=== PATIENT | female | born 1940 | race Caucasian/White ===

== ENCOUNTER 2020-04-13 15:28 | Outpatient (CLI) | payer MEDICARE ==
--- NOTE | 2020-04-13 16:13 | ULT ---
EXAM: Bilateral lower extremity venous Doppler HISTORY: Bilateral calf pain since December, right greater than left. FINDINGS: Grayscale, color-flow, Doppler evaluation, spectral analysis of the bilateral lower extremity venous structures is performed with 2-D imaging. The bilateral common femoral, superficial femoral, popliteal, posterior tibial, proximal greater saphenous and profunda femoral veins are imaged. Real-time imaging demonstrates sluggish venous flow within the bilateral lower extremity venous struc tures, but there is evidence of normal luminal compressibility and augmentation within the visualized deep venous structures bilateral lower extremities. Sluggish flow is present in the bilate ral lower extremity venous structures. Pulsatile flow is also demonstrated venous structures, but this is likely a function of venous hemodynamics. IMPRESSION: No evidence of a deep vein thrombosis in the visualized deep venous structures bilateral lower extrem ities. There is evidence of sluggish flow involving the bilateral lower extremity venous structures.
== END 2020-04-13 15:29 | disposition home or self-care (01) ==
LOC: SCSULT 15:28
PROVIDERS: ATTEND Family Medicine
DX: M79.604 Pain in right leg (principal); I87.8 Other specified disorders of veins
CPT/HCPCS: 93970

== ENCOUNTER 2020-05-20 23:26 | Inpatient (IN) | payer MEDICARE, OTHER ==
[2020-05-20] MEDS ORDERED: EPINEPHrine 1 MG/ML AMP ONE ×3 (23:31→23:32)
[2020-05-20] MEDS ORDERED: Midazolam HCl 2 mg/2 ml Vial ONE (23:52)
[2020-05-20 23:56] LABS: Actual Bicarbonate (HCO3a) 17.2 mEq/L (22-28); Analyzer IN Cardio ER; Base Excess (BEa) -8.9 mEq/L (-2.0 to +3.0); CO2 Tension 37.6 mmHg (35.0-45.0); Calcium, Ionized (arterial) 0.92 mmol/L (1.12-1.30); Carboxyhemoglobin (COHb) 0.3 gm% (0.0-3.0); Hemoglobin (Hb) 13.1 g/dL (12.0-16.0); O2 Tension (PaO2), arterial 91.4 mmHg (> 60.0); pH, Arterial 7.28 (7.35-7.45)
[2020-05-21 00:17] LABS: Puncture Site RRA
[2020-05-21 00:27] LABS: Bilirubin Negative (Negative); Blood, Urine 3+ (Negative); Clarity Clear (Clear); Glucose, Urine (Dipstick) 300 mg/dL (Negative); Ketone, Urine 20 mg/dL (Negative); Leukocyte Negative Leu/uL (Negative); Nitrite Negative (Negative); Protein, Urine (Dipstick) 100 mg/dL (Neg-Trace); RBC/HPF 0-3 HPF (0-3); Specific Gravity, Urine 1.015 (1.002-1.036); Squamous Epithelial None Seen HPF (0-3); Urobilinogen Normal mg/dL (Less than 2); WBC/HPF 0-3 HPF (0-3); pH, Urine 5.5 (5.0-9.0)
[2020-05-21 00:34] LABS: Bacteria/HPF 1+ HPF (None Seen)
[2020-05-21] MEDS ORDERED: Acetaminophen 325 MG TAB PO PRN (00:40)
[2020-05-21] MEDS ORDERED: Acetaminophen 650 MG Suppository PR PRN (00:40)
[2020-05-21] MEDS ORDERED: Ondansetron ODT 4 MG TAB PO PRN (00:40)
[2020-05-21] MEDS ORDERED: Guaifenesin DM 100-10/5 ML UDCUP PO PRN (00:40)
[2020-05-21] MEDS ORDERED: Ondansetron PF 4 MG/2 ML Vial IVP PRN (00:40)
[2020-05-21] MEDS ORDERED: Norepinephrine 8 MG/0.9% NS 250 ML IVPB SCH (00:45)
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
[2020-05-21 01:29] LABS: Troponin I 7.039 ng/mL (< 0.028)
[2020-05-21] MEDS: Sodium Chloride 0.9% 1,000 ML IV SCH ×2 (01:30→18:56)
[2020-05-21] MEDS ORDERED: Cefepime 2 GM in Sodium Chloride 0.9% 100 ML IVPB SCH (02:00)
[2020-05-21] MEDS ORDERED: Vancomycin HCl 1.75 GM in Sodium Chloride 0.9% 500 ML IVPB SCH (02:30)
[2020-05-21] MEDS ORDERED: fentaNYL Citrate/PF 2,000 MCG in Sodium Chloride 0.9% 60 ML IV SCH (02:36)
[2020-05-21] MEDS ORDERED: DISCONTINUE PREVIOUS NARCOTIC PAIN MEDICATIONS AND BENZODIAZEPINES FS SCH (02:36)
[2020-05-21] MEDS ORDERED: Fentanyl BOLUS 250 ML IVPB PRN (02:36)
[2020-05-21] MEDS ORDERED: Propofol BOLUS 1,000 MG/100 ML VIAL IV PRN (02:36)
[2020-05-21] MEDS ORDERED: Morphine 2 MG/ML VIAL SLOW IVP PRN (02:36)
[2020-05-21] MEDS ORDERED: Propofol 1,000 MG/100 ML VIAL IV PRN (02:36)
[2020-05-21] MEDS ORDERED: EPINEPHrine 4 MG in Dextrose 5% in Water 250 ML IV PRN (02:36)
[2020-05-21] MEDS ORDERED: Lorazepam 2 MG/ML VIAL SLOW IVP PRN (02:36)
[2020-05-21 04:16] LABS: Lactic Acid 11.7 mmol/L (0.5-2.2)
[2020-05-21 04:24] LABS: ALT (SGPT) 147 U/L (8-55); AST (SGOT) 175 U/L (5-34); Alkaline Phosphatase 43 U/L (40-110); Anion Gap 23 mmol/L (10-20); BUN (Urea Nitrogen) 28 mg/dL (9.8-20.1); Bilirubin, Total 0.7 mg/dL (0.2-1.2); Calc. Creatinine Clearance 26 mL/min (70-130); Calcium 6.8 mg/dL (7.8-10.44); Carbon Dioxide 16 mmol/L (23-31); Chloride 108 mmol/L (98-107); Estimated GFR-MDRD 27; Globulin 2.1 g/dL (2.4-3.5); Glucose 335 mg/dL (83-110); Potassium 3.2 mmol/L (3.5-5.1); Protein, Total 5.1 g/dL (6.0-8.3); Sodium 144 mmol/L (136-145)
[2020-05-21 04:51] LABS: Band 8 % (5-11); Hemoglobin 12.5 g/dL (12.0-16.0); Lymphocytes 24 % (21-51); MDiff Complete? YES; Mean Corpuscular HGB CONC 32.5 g/dL (32.0-36.0); Mean Corpuscular Hemoglobin 30.1 pg (27.0-31.0); Mean Corpuscular Volume 92.7 fL (78.0-98.0); Mean Platelet Volume 8.2 fL (7.4-10.4); Monocytes 7 % (0-10); Neutrophil 61 % (42-75); Platelet Count 257 thou/uL (130-400); RBC Distribution Width 13.8 % (11.5-14.5); Red Blood Cell (RBC) Count 4.16 mill/uL (4.20-5.40); White Blood Cell (WBC) Count 11.6 thou/uL (4.8-10.8)
--- NOTE | 2020-05-21 07:47 | RAD ---
XR Chest 1 View Portable History: Intubated. Sepsis Comparison: Radiograph prior day Findings: Endotracheal tube tip is above the clavicles. Enteric tube side port just above the GE junc tion. Defibrillator pad projects of the right hemithorax. Heart size is enlarged. Small effusions. Asymmetric right perihilar airspace opacities. Impression: 1. Subtle right perihilar airspace opacity concerning for infection. 2. Small pleural effusions. 3. Enteric tube side port just above the GE junction. Recommend advancing. 4. Endotracheal tube tip just below the level of clavicles.
[2020-05-21 08:32] LABS: Actual Bicarbonate (HCO3a) 15.1 mEq/L (22-28); Analyzer IN Cardio ER; Base Excess (BEa) -6.3 mEq/L (-2.0 to +3.0); Calcium, Ionized (arterial) 0.93 mmol/L (1.12-1.30); Carboxyhemoglobin (COHb) 0.6 gm% (0.0-3.0); Hemoglobin (Hb) 13.1 g/dL (12.0-16.0); O2 Tension (PaO2), arterial 90.3 mmHg (> 60.0); Potassium - ABG Lab 3.27 mmol/L (3.70-5.30); pH, Arterial 7.48 (7.35-7.45)
[2020-05-21] MEDS ORDERED: Electrolyte Replacement Protoc 1 EACH EACH FS ONE (08:56)
[2020-05-21 08:57] LABS: CO2 Tension 20.8 mmHg (35.0-45.0); Puncture Site RB
[2020-05-21] MEDS ORDERED: Dextrose 5% in Water 1,000 ML IV PRN (09:06)
[2020-05-21] MEDS ORDERED: Dextrose 50% Abboject 50 ML SYRINGE SLOW IVP PRN (09:06)
[2020-05-21] MEDS ORDERED: Potassium Chloride 40 MEQ in Sodium Chloride 0.9% 250 ML 250 ML IVPB SCH (09:15)
[2020-05-21] MEDS: Enoxaparin Sodium 30 MG/0.3 ML SYRINGE SC SCH (09:36)
[2020-05-21] MEDS: Famotidine/PF 20 mg/2ml Vial SLOW IVP SCH (09:37)
--- NOTE | 2020-05-21 09:59 | CON ---
DATE OF CONSULTATION: 05/21/2020 45 minutes critical care time. REASON FOR CONSULTATION: Respiratory failure after a cardiopulmonary arrest. HISTORY OF PRESENT ILLNESS: Ms. Fernández is an 80-year-old female, who was transferred from [facility], where she had presented yesterday evening with lethargy. She was apparently having trouble moving her extremities. They decided to intubate her. Shortly after intubation, she became bradycardic, went into PEA, was given IV epinephrine, had return of spontaneous circulation, was placed on epinephrine drip. She was given antibiotics for presumed pneumonia and sent over here. Of note, she has a severely elevated troponin. PAST MEDICAL HISTORY: Hypertension, depression, gastritis, arthritis, chronic back pain, herpes simplex, hyperlipidemia. PAST SURGICAL HISTORY: Lumbar fusion, total knee replacement. FAMILY MEDICAL HISTORY: Unremarkable. SOCIAL HISTORY: Does not smoke. Does not consume alcohol. REVIEW OF SYSTEMS: Cannot be obtained as she is currently on mechanical ventilation. ALLERGIES: BUPROPION, CLONAZEPAM, CODEINE, DOXYCYCLINE, FENTANYL, PROPOXYPHENE, VENLAFAXINE. PHYSICAL EXAMINATION: VITAL SIGNS: Heart rate 76, blood pressure 127/80, O2 saturation 100%, respiratory rate 24. She is currently intubated and on mechanical ventilation. Temperature is 98.3. HEENT: Pupils reactive. Oropharynx, intubated. NECK: No adenopathy or JVD. CHEST: Fairly clear anteriorly. CARDIAC: S1 and S2, regular. ABDOMEN: Soft, nontender to palpation. EXTREMITIES: No clubbing, cyanosis, or edema. The patient will move to all commands. LABORATORY DATA: Sodium 144, potassium 3.2, chloride 108, CO2 of 16, BUN 28, creatinine 1.8, glucose 335. Lactate 11.7, troponin 11.8. AST 175, ALT 147, procalcitonin 1.15. PH 7.48, pCO2 of 20, pO2 of 90, that is on SIMV rate 24, tidal volume 450, PEEP 5, pressure support 10, FiO2 of 50%. White blood cell count 11.6, hematocrit 38.6, and platelet count 257. Her x-ray shows cardiomegaly. There is really no acute infiltrate noted. CT of the head was reported as negative. ASSESSMENT: 1. Status post acute cardiopulmonary arrest from PEA that occurred after intubation. 2. Myocardial infarction. 3. Possible pneumonia/sepsis. The patient presenting with intermediate procalcitonin level with lactic acidosis. PLAN: 1. The patient will be kept on mechanical ventilation, but I will go ahead and adjust her settings. 2. Replace potassium. 3. Continue empiric antibiotics. 4. Cardiology consult. 5. Wean vasopressors as tolerated. 6. Pepcid for GI prophylaxis. 7. Enoxaparin for DVT prophylaxis. Job ID: [id number]
[2020-05-21] MEDS ORDERED: Aspirin 325 MG TAB PO SCH (10:00)
[2020-05-21 10:01] LABS: Troponin I 17.015 ng/mL (< 0.028)
[2020-05-21] MEDS: Insulin Regular 300 UNITS/3 ML VIAL SC PRN (11:58)
[2020-05-21 12:35] LABS: SARS-CoV-2 MS2 Positive; SARS-CoV-2 N Gene Negative; SARS-CoV-2 S Gene Negative; SARS-CoV-2 by NAA Not Detected (NotDetected); SARS-CoV-2 orf1ab Negative
--- NOTE | 2020-05-21 12:37 | CON ---
DATE OF CONSULTATION: 05/21/2020 REASON FOR CONSULTATION: [id number] myocardial infarction, hypotension, renal insufficiency, status post pulseless electrical activity. PRIMARY BEHAVIOR THERAPIST: Dr. Moshe Guardado. HISTORY OF PRESENT ILLNESS: Ms. Fernández is an 80-year-old woman. She was transferred to this institution from [facility] last night. The patient was taken to [facility] after her was unable to awaken her. She had taken a muscle relaxer 24 hours prior to that, slept all day and all night. When tried to awaken her, he was unable to do so. On arrival to the ER, she was lethargic, moving all extremities spontaneously, not following commands. She had low oxygen saturations. Elected to intubate her. CT scan was negative. Lactic acid was elevated. White count was normal. Troponin 1.4. CT scan of her chest showed diffuse right-sided infiltrates, possible pneumonia. Shortly after intubation, she became bradycardic, then pulseless electrical activity. She was successfully resuscitated. Also started on epinephrine drip, given vancomycin and cefepime for possible pneumonia. The patient apparently is Dr. Moshe Guardado's patient. REVIEW OF SYSTEMS: Not obtainable. She is currently intubated, on the ventilator. FAMILY HISTORY: Unable to obtain. SOCIAL HISTORY: Unable to obtain. PHYSICAL EXAMINATION: GENERAL: This is an elderly woman, somewhat frail appearing. Blood pressure now 124/74, pulse 72. She is still on epinephrine. HEENT: Eyes, nonicteric. Mouth, mucous membranes are moist. LUNGS: Clear anteriorly and laterally. CARDIAC: Normal S1, normal S2. I do not hear a murmur, rub, or gallop. ABDOMEN: Soft and nontender. EXTREMITIES: Warm and dry. No clubbing or cyanosis. No edema. She has palpable dorsalis pedis pulses bilaterally. There is a femoral vein catheter on the right side, there is a mild hematoma. DIAGNOSTIC STUDIES: EKG last night did reveal what looked like an old anterior KS. There were times when there was a bifascicular block present, with right bundle-branch block and left axis deviation. Troponin level 7.039, then 11.8. Lactic acid 11.7. Most recent potassium is 3.2. ASSESSMENT: 1. Status post pulseless electrical activity. 2. Ipq-[id number] myocardial infarction. 3. Transient bifascicular block. 4. Possible sepsis. 5. Hypokalemia. 6. Unknown previous cardiac status. PLAN: 1. We will request records from Dr. Guardado's office. 2. Give aspirin. 3. Review echocardiogram. 4. Ultimately, likely will need cardiac catheterization, we will need to discuss that in detail with the patient's . Her prognosis is guarded. 5. Also replete potassium. CODE STATUS: Full. Job ID: [id number]
[2020-05-21 13:20] LABS: Potassium 4.5 mmol/L (3.5-5.1)
--- NOTE | 2020-05-21 15:47 | PDOC.PALCO ---
Palliative Care Consult - Consult Details Requesting Physician: Dr José malcolm Reason for Consult: goals of care, family support Family Members Present: Patient Keenan and grandson Addison - Pertinent HPI 80 year old female who lives independently in a home setting with her , daughter and and grandson. She enjoys sorting photographs and reading. She and her have been 6o+years. He denies any significant history, however in conversation did relay that it is not unusual for his to sleep all day. 05/19 he reports she took a muscle relaxer and slept through the day Thursday, he checked on her through the day and she appeared to be resting. He went to awaken her last night to eat/drink something and that is when he discovered she was unresponsive. EMS called and transferred her to [facility], subsequent intubation, with bradycardia, and PEA which responded to epinephrine with return of spontaneous circulation. Identified to have an elevated troponin , elevated lactic acid, and suspect pneumonia after CT of chest. Epi drip, and abx initiated, transferred to [facility] for higher level of care. - Pertinent PMH Hypertension, depression, arthritis, chronic back pain, HDL, herpes simplex - Social History Smoking Status: Never smoker Smoking: no tobacco exposure Alcohol Use: none Drug Use History: none Living Situation: - Medications MAR Reviewed: Yes - Allergies Allergies/Adverse Reactions: Allergies Allergy/AdvReac Type Severity Reaction Status Date / Time bupropion [From Wellbutrin] Allergy Verified 03/31/17 12:06 clonazepam [From Klonopin] Allergy Verified 03/31/17 12:06 codeine Allergy Rash Verified 03/31/17 12:06 doxycycline Allergy Verified 03/31/17 12:06 fentanyl Allergy Verified 03/31/17 12:06 propoxyphene Allergy Verified 03/31/17 12:06 [From Darvocet-N] venlafaxine [From Effexor] Allergy anaphalacti Verified 03/31/17 12:06 c - Subjective Mechanical ventilation, sedated, vasopressors - ROS Non Response: due to endotracheal tube, due to mental status - Objective Vital Signs: Vital Signs - Most Recent Temp Pulse Resp BP Pulse Ox 98.8 F 71 20 96/70 98 05/21/20 12:00 05/21/20 14:44 05/21/20 14:00 05/21/20 14:44 05/21/20 12:00 Palliative Performance Scale: 30 - Physical Exam Constitutional: encephalitic, ill appearing HEENT: moist MMs Respiratory: no rhonchi, no wheezing Deviation from normal: intubated/mechanical ventilation Cardiovascular: RRR Gastrointestinal: soft, non-tender Genitourinary: parker catheter Musculoskeletal: pulses present Neurology: moves all 4 limbs Deviation from normal: sedated - Problem List (1) Myocardial infarction Code(s): I21.9 - ACUTE MYOCARDIAL INFARCTION, UNSPECIFIED Current Visit: Yes Status: Acute (2) Acute respiratory failure Code(s): J96.00 - ACUTE RESPIRATORY FAILURE, UNSP W HYPOXIA OR HYPERCAPNIA Current Visit: Yes Status: Acute (3) Hypertension Code(s): I10 - ESSENTIAL (PRIMARY) HYPERTENSION Current Visit: Yes Status: Acute (4) Sudden cardiac arrest Code(s): I46.9 - CARDIAC ARREST, CAUSE UNSPECIFIED Current Visit: Yes Status : Acute - Plan/Recommendations Plan: Short life review with patient . Reviewed current events leading to hospital stay. Discussed hopeful for meaningful recovery. Emotional support and therapeutic listening. Patient son is in [place], offered to face time if he needed for further support. Please also refer to Palliative Care notes in note section Communicated with Dr John Will place spiritual care consult. [50] minutes spent on this encounter with >50% of the time in counseling and coordination of care. Thank you for this very appropriate consult.
[2020-05-21 17:20] LABS: CKMB 26.2 ng/mL (0-6.6)
--- NOTE | 2020-05-21 19:25 | PDOC.HOSPP ---
- Subjective Subjective: pt is intubated. d/w at bedside and palliative care team - Objective Vital Signs & Weight: Vital Signs (12 hours) Temp Pulse Resp BP Pulse Ox 05/21/20 18:26 72 160/99 H 05/21/20 18:00 20 05/21/20 16:00 99.6 F 20 98 05/21/20 14:44 71 96/70 05/21/20 14:00 20 05/21/20 12:00 98.8 F 20 98 05/21/20 11:34 76 103/68 05/21/20 10:00 20 05/21/20 08:00 100.1 F H 24 H 100 05/21/20 07:56 75 108/59 L Weight Admit Weight 149 lb 14.4 oz Weight 149 lb 14.629 oz Most Recent Monitor Data Heart Rate from ECG 72 NIBP 160/99 NIBP BP-Mean 119 Respiration from ECG 20 SpO2 99 I&O: 05/20/20 05/21/20 05/22/20 06:59 06:59 06:59 Intake Total 1064 917.7 Output Total 970 210 Balance 94 707.7 Result Diagrams: 05/21/20 03:44 05/21/20 13:00 Additional Labs: Accuchecks 05/21/20 05/21/20 05/21/20 18:14 14:45 10:35 POC Glucose 104 127 H 211 H 05/21/20 06:48 POC Glucose 286 H Hospitalist ROS - Medication Medications: Active Medications Generic Name Dose Route Start Last Admin Trade Name Freq PRN Reason Stop Dose Admin Enoxaparin Sodium 30 mg 05/21/20 09:00 05/21/20 09:36 Lovenox SC 30 mg 0900 JAIR Administration Famotidine 20 mg 05/21/20 09:00 05/21/20 09:37 Pepcid SLOW IVP 20 mg DAILY JAIR Administration Sodium Chloride 1,000 mls @ 70 mls/hr 05/21/20 00:45 05/21/20 18:56 Normal Saline 0.9% IV 1,000 mls .[id number] JAIR Administration Epinephrine 4 mg/ Dextrose/ 254 mls @ 0 mls/hr 05/21/20 02:36 05/21/20 02:49 Water IV 254 mls INF PRN Administration TO KEEP MAP >=65 Protocol Titrate Insulin Human Regular 0 units 05/21/20 09:06 05/21/20 11:58 Humulin R SC 4 unit .MODERATE SLIDING SC PRN Administration Moderate Correctional Scale Hosp A/P - Plan - Exam General Appearance: NAD, intubated Eye: PERRL, anicteric sclera ENT: normocephalic atraumatic, no oropharyngeal lesions Neck: supple, symmetric, no JVD Heart: RRR, no murmur, no gallops Respiratory: CTAB, no wheezes, no rales Gastrointestinal: soft, non-tender, non-distended Extremities: no cyanosis, no clubbing Skin: normal turgor, no lesions, no rashes Neurological: cranial nerve grossly intact, normal sensation to touch Musculoskeletal: normal tone, normal strength Psychiatric - other findings: sedated ASSESSMENT and plan: #Status post cardiopulmonary arrest #Acute hypoxic respiratory failure-intubated #NSTEMI #Pneumonia-covered PCR was negative #Hypertension 05/21/2020 I had a long discussion with her and update him with regard to her status. Patient remains intubated. Appreciate input from specialists cont IV abx. K has been repleted. follow AM labs. Pt will likely need a LHC at some point. Echo reviewed, depressed EF.
[2020-05-22] MEDS: Cefepime 2 GM in Sodium Chloride 0.9% 100 ML IVPB SCH (02:11)
[2020-05-22] MEDS: Vancomycin HCl 500 MG in Sodium Chloride 0.9% 100 ML IVPB SCH (02:11)
[2020-05-22 04:51] LABS: #Monocytes 0.7 thou/uL (0.11-0.59); #Neutrophils 8.1 thou/uL (1.40-6.50); %Basophils 0.3 % (0.0-1.0); %Eosinophils 0.2 % (0.0-10.0); %Lymphocytes 18.4 % (21.0-51.0); %Monocytes 6.3 % (0.0-10.0); %Neutrophils 74.9 % (42.0-75.0); Hemoglobin 12.6 g/dL (12.0-16.0); Mean Corpuscular HGB CONC 32.7 g/dL (32.0-36.0); Mean Corpuscular Hemoglobin 29.6 pg (27.0-31.0); Mean Corpuscular Volume 90.5 fL (78.0-98.0); Platelet Count 160 thou/uL (130-400); Red Blood Cell (RBC) Count 4.25 mill/uL (4.20-5.40); White Blood Cell (WBC) Count 10.8 thou/uL (4.8-10.8)
[2020-05-22 05:36] LABS: Troponin I 18.839 ng/mL (< 0.028)
[2020-05-22 05:43] LABS: Anion Gap 13 mmol/L (10-20); BUN (Urea Nitrogen) 32 mg/dL (9.8-20.1); Calc. Creatinine Clearance 31 mL/min (70-130); Carbon Dioxide 21 mmol/L (23-31); Chloride 111 mmol/L (98-107); Estimated GFR-MDRD 32; Glucose 105 mg/dL (83-110); Potassium 3.6 mmol/L (3.5-5.1); Sodium 141 mmol/L (136-145)
--- NOTE | 2020-05-22 07:27 | RAD ---
CHEST 1 VIEW: INDICATION: History of pneumonia. COMPARISON: Prior exam dated 05/21/2020. IMPRESSION: Slight worsening of tiny right and small left pleural effusions. Cardiomegaly persists. No pneumoth orax is evident. ET tube and gastric catheter are unchanged. Right perihilar airspace disease is no t seen due to rotation. POS: BH
[2020-05-22 07:59] LABS: Actual Bicarbonate (HCO3a) 17.1 mEq/L (22-28); Base Excess (BEa) -3.4 mEq/L (-2.0 to +3.0); Calcium, Ionized (arterial) 1.01 mmol/L (1.12-1.30); Carboxyhemoglobin (COHb) 0.6 gm% (0.0-3.0); Hemoglobin (Hb) 14.1 g/dL (12.0-16.0); O2 Tension (PaO2), arterial 100.8 mmHg (> 60.0); Potassium - ABG Lab 3.35 mmol/L (3.70-5.30); pH, Arterial 7.53 (7.35-7.45)
[2020-05-22] MEDS: Enoxaparin Sodium 30 MG/0.3 ML SYRINGE SC SCH (08:38)
[2020-05-22] MEDS: Famotidine/PF 20 mg/2ml Vial SLOW IVP SCH (08:38)
[2020-05-22] MEDS: Aspirin 81 mg Enteric Coated Tablet PO SCH (08:38)
--- NOTE | 2020-05-22 09:02 | PRG ---
DATE OF SERVICE: 05/22/2020 TIME SPENT: 35 minutes critical care time. SUBJECTIVE: The patient remains intubated on mechanical ventilation. She will wake up and follow commands. OBJECTIVE: VITAL SIGNS: Her pulse is 87, blood pressure O2 saturation in the mid 90s, respiratory rate 16, temperature 99. HEENT: Unremarkable. NECK: No adenopathy or JVD. LUNGS: A few inspiratory crackles. CARDIAC: S1 and S2. Regular. ABDOMEN: Soft. EXTREMITIES: No edema. DIAGNOSTIC DATA: Her echo showed a diminished EF in the 20% to 25% range. Chest x-ray is clear. LABORATORY DATA: White blood cell count 10, hematocrit 38.5, and platelet count 160. pH 7.56, pCO2 of 21, pO2 of 100. Sodium 141, potassium 3.6, chloride 111, CO2 of 21, BUN 35, creatinine 1.5, and glucose 105. Troponin is 18.8. ASSESSMENT: 1. Acute respiratory failure requiring mechanical ventilation. 2. Low ejection fraction consistent with systolic heart failure. 3. Elevated cardiac enzymes indicative of non-Q myocardial infarction. 4. Possible pneumonia/sepsis. PLAN: 1. I have decreased the respiratory rate on mechanical ventilation. 2. She has been weaned off the vasopressors. 3. We will continue antibiotics for now. 4. May be headed toward cardiac catheterization. We will discuss with Cardiology. Job ID: [id number]
[2020-05-22] MEDS ORDERED: Furosemide 20 MG/2 ML VIAL SLOW IVP SCH (09:45)
--- NOTE | 2020-05-22 10:09 | PRG ---
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 REVIEW OF SYSTEMS: Not obtainable. She is on the ventilator. OBJECTIVE: VITAL SIGNS: Blood pressure 159/90, pulse is 75, sinus. LUNGS: Clear. CARDIAC: Normal S1, S2. ABDOMEN: Soft, nontender. LABORATORY DATA: The echocardiogram showed the ejection fraction is depressed at 20% to 25%. ASSESSMENT: 1. Congestive heart failure, systolic, suspect acute on chronic. Still awaiting records which have been requested. 2. Respiratory failure. 3. Hypertension. 4. Status post non-ST elevation infarction. PLAN: 1. Continue aspirin. 2. We will give her a dose of intravenous Lasix. 3. Potassium. 4. Eventually we will probably need cardiac catheterization, would be better if we get some records to see if any other interventions have been done in the past. Job ID: [id number]
[2020-05-22 10:50] LABS: CO2 Tension 21.1 mmHg (35.0-45.0); Puncture Site RRA
[2020-05-22 10:51] LABS: ALV-art Gradient 158.025 (0-20)
[2020-05-22] MEDS: Sodium Chloride 0.9% 1,000 ML IV SCH ×2 (10:58→21:49)
[2020-05-22] MEDS ORDERED: DC Sedation Protocol FS ONE (12:08)
--- NOTE | 2020-05-22 13:03 | PQF ---
CLINICAL DOCUMENTATION CLARIFICATION FORM: Dear Dr. CHATA SCHULTZ Date: 05-22-20 Please exercise your independent, professional judgment in responding to the clarification form. Clinical indicators are provided on the bottom of this form for your review. Please check appropriate box(es) to clarify if the following diagnosis has been ruled in our ruled out: SEPTIC SHOCK [ X ] Ruled in diagnosis [ ] Continue to treat [ ] Resolved [ ] Ruled out diagnosis [ ] Other diagnosis [ ] Unable to determine In addition, please specify: Present on Admission (POA): [ X] Yes [ ] No [ ] Unable to determine For continuity of documentation, please document condition throughout progress notes and discharge summary. Thank You. To be completed by CDI/Coding staff for physician review: CLINICAL INDICATORS - SIGNS / SYMPTOMS / LABS / RESULTS AND LOCATION IN MR: ER DX: SEPTIC SHOCK, RESPIRATORY FAILURE, ROSC 05-21-20 H&P: ACUTE SUDDEN CARDIAC ARREST, ACUTE RESPIRATORY FAILURE, HTN, PNEUMONIA WBC: 05-21-20: 11.6, LACTIC ACID: 05-21-20: 11.9, 11.7 ER NOTES 05-21-20: BP: 82-54, 90/51, ON VENT RISK FACTORS / RESULTS AND LOCATION IN MR: ER NOTES: PT WAS FOUND TO HAVE PNEUMONIA WELL SEVERE LACTIC ACIDOSIS TREATMENTS / RESULTS AND LOCATION IN MR: ER NOTES: NS IVF MAR: 05-21-20: NS IVF, VANCOMYCIN IV, CEFEPIME CDS Signature: Arina Choe Phone #: [phone] Date: 05-22 This is a permanent part of the Medical Record [facility]
[2020-05-22] MEDS ORDERED: Enalaprilat Dihydrate 1.25 MG/ML VIAL SLOW IVP PRN (13:23)
--- NOTE | 2020-05-22 13:27 | PQF ---
CLINICAL DOCUMENTATION CLARIFICATION FORM: Dear Dr. RUBEN SCHULTZ Date: 05-22-20 Please exercise your independent, professional judgment in responding to the clarification form. Clinical indicators are provided on the bottom of this form for your review. Please check appropriate box(es): [ X ] Acute Renal Failure (ARF) / Acute Kidney Injury (ONEIL) [ ] Insignificant Lab Values [ ] Other diagnosis [ ] Unable to determine In addition, please specify: Present on Admission (POA): [ X ] Yes [ ] No [ ] Unable to determine For continuity of documentation, please document condition throughout progress notes and discharge summary. Thank You. To be completed by CDI/Coding staff for physician review: CLINICAL INDICATORS - SIGNS / SYMPTOMS / LABS / RESULTS AND LOCATION IN MR: Consult note Dr. Bonner 05-21-20: REASON FOR CONSULT: NSTEMI, HYPOTENSION, RENAL INSUFFICIENCY, S/P PEA. GFR: 05-21-20: 27, 05-22-20: 32 CREATININE: 05-21-20: 1.82, 05-22-20: 1.54 BUN: 05-21-20: 28, 05-22-20: 32 RISK FACTORS / RESULTS AND LOCATION IN MR: ER NOTES: SHE WAS GIVEN VANCOMYCIN AND CEFEPIME FOR LIKELY PNEUMONIA CONSULT NOTE CHELY 05-21-20: S/P PEA, NSTEMI, POSSIBLE SEPSIS, HYPOKALEMIA TREATMENTS / RESULTS AND LOCATION IN MR: ER NOTES: IVF NS National Kidney [employer] Guidelines for CKD Staging Stage I Kidney damage with normal or increased GFR GFR > 90 Stage II Kidney damage with mildly decreased GFR GFR 60-89 Stage III Kidney damage with moderately decreased GFR GFR 30-59 Stage IV Kidney damage with severely decreased GFR GFR 16-29 Stage V Kidney failure GFR<15 ESRD End Stage Renal Disease On dialysis Acute Renal Failure/Acute Kidney Failure defined as: Increases in SCr by (>) 0.3 mg/dl within 48 hours OR- Increases in SCr by (>) 1.5 times baseline, known or presumed to have occurred within the prior 7 days OR- Urine volume < 0.5 ml/kg/hour for 6 hours (KDIGO supplement 2012 for RIFLE/MARIA ISABEL criteria) CDS Signature: Arina Daija Phone #: [phone] Date: This is a permanent part of the Medical Record [facility]
[2020-05-22] MEDS ORDERED: Enalaprilat Dihydrate 1.25 MG/ML VIAL SLOW IVP SCH (13:30)
--- NOTE | 2020-05-22 17:09 | PDOC.HOSPP ---
- Subjective Subjective: Patient was seen examined at bedside. Patient is successfully extubated today. Patient tolerated well. She denies any chest pain. I have called and update patient's on the phone today. - Objective Vital Signs & Weight: Vital Signs (12 hours) Temp Pulse Resp BP Pulse Ox 05/22/20 16:00 99.0 F 95 05/22/20 14:53 157/90 H 05/22/20 13:13 88 21 H 99 05/22/20 12:00 98.0 F 12 05/22/20 11:19 76 145/91 H 05/22/20 10:00 15 05/22/20 08:00 98.8 F 20 98 05/22/20 07:37 70 147/87 H 05/22/20 06:00 20 Weight Admit Weight 149 lb 14.4 oz Weight 149 lb 14.629 oz Most Recent Monitor Data Heart Rate from ECG 84 NIBP 155/96 NIBP BP-Mean 117 Respiration from ECG 27 SpO2 98 I&O: 05/21/20 05/22/20 05/23/20 06:59 06:59 06:59 Intake Total 1064 1742.7 Output Total 151 928 9665 Balance 94 1177.7 -2245 Result Diagrams: 05/22/20 03:30 05/22/20 03:30 Additional Labs: Accuchecks 05/22/20 05/22/20 05/21/20 12:22 09:57 23:56 POC Glucose 113 H 102 110 05/21/20 18:14 POC Glucose 104 Hospitalist ROS - Medication Medications: Active Medications Generic Name Dose Route Start Last Admin Trade Name Apolinar PRN Reason Stop Dose Admin Aspirin 81 mg 05/22/20 09:00 05/22/20 08:38 Ecotrin PO 81 mg DAILY JAIR Administration Enoxaparin Sodium 30 mg 05/21/20 09:00 05/22/20 08:38 Lovenox SC 30 mg 0900 JAIR Administration Famotidine 20 mg 05/21/20 09:00 05/22/20 08:38 Pepcid SLOW IVP 20 mg DAILY JAIR Administration Cefepime HCl 2 gm/ Sodium 100 mls @ 200 mls/hr 05/22/20 03:00 05/22/20 02:11 Chloride IVPB 100 mls 0300 JAIR Administration Sodium Chloride 1,000 mls @ 70 mls/hr 05/21/20 00:45 05/22/20 10:58 Normal Saline 0.9% IV 1,000 mls .[id number] JAIR Administration Epinephrine 4 mg/ Dextrose/ 254 mls @ 0 mls/hr 05/21/20 02:36 05/21/20 02:49 Water IV 254 mls INF PRN Administration TO KEEP MAP >=65 Protocol Titrate Vancomycin HCl 500 mg/ Sodium 100 mls @ 100 mls/hr 05/22/20 02:00 05/22/20 02 :11 Chloride IVPB 100 mls 0200 JAIR Administration Insulin Human Regular 0 units 05/21/20 09:06 05/21/20 11:58 Humulin R SC 4 unit .MODERATE SLIDING SC PRN Administration Moderate Correctional Scale Hosp A/P - Plan - Exam General Appearance: NAD, intubated Eye: PERRL, anicteric sclera ENT: normocephalic atraumatic, no oropharyngeal lesions Neck: supple, symmetric, no JVD Heart: RRR, no murmur, no gallops Respiratory: CTAB, no wheezes, no rales Gastrointestinal: soft, non-tender, non-distended Extremities: no cyanosis, no clubbing Skin: normal turgor, no lesions, no rashes Neurological: cranial nerve grossly intact, normal sensation to touch Musculoskeletal: normal tone, normal strength Psychiatric - other findings: sedated ASSESSMENT and plan: #Status post cardiopulmonary arrest #Acute hypoxic respiratory failure-intubated #NSTEMI #Pneumonia-covered PCR was negative #Acute on chronic systolic heart failure with EF of 20-25% #Septic/cardiogenic shock, present on admission #Hypertension #ONEIL, POA 05/22/2020 Patient is successfully extubated today. Patient tolerating nasal cannula. Cardiology evaluated and started on IV diuresis. Ultimately, patient will need a left heart cath at some point. Waiting on records from cardiology office Continue management as per slab inspector and cardiology. Updated family members. Replete amie. 05/21/2020 I had a long discussion with her and update him with regard to her status. Patient remains intubated. Appreciate input from specialists cont IV abx. K has been repleted. follow AM labs. Pt will likely need a LHC at some point. Echo reviewed, depressed EF.
[2020-05-22] MEDS: Pregabalin 50 MG CAP PO SCH (22:02)
[2020-05-23 01:22] LABS: Vancomycin, Trough 13.2 ug/mL
[2020-05-23] MEDS: Vancomycin HCl 500 MG in Sodium Chloride 0.9% 100 ML IVPB SCH (02:16)
[2020-05-23] MEDS: Cefepime 2 GM in Sodium Chloride 0.9% 100 ML IVPB SCH (03:19)
[2020-05-23 05:29] LABS: Anion Gap 18 mmol/L (10-20); BUN (Urea Nitrogen) 26 mg/dL (9.8-20.1); Calc. Creatinine Clearance 39 mL/min (70-130); Calcium 7.8 mg/dL (7.8-10.44); Carbon Dioxide 21 mmol/L (23-31); Chloride 106 mmol/L (98-107); Estimated GFR-MDRD 40; Glucose 123 mg/dL (83-110); Magnesium 1.4 mg/dL (1.6-2.6); Potassium 3.9 mmol/L (3.5-5.1); Sodium 141 mmol/L (136-145)
[2020-05-23 05:34] LABS: Critical Call Chem Troponin I RESULT DECREASING; Troponin I 8.082 ng/mL (< 0.028)
[2020-05-23 05:49] LABS: Band 17 % (5-11); Hemoglobin 13.3 g/dL (12.0-16.0); Lymphocytes 9 % (21-51); MDiff Complete? YES; Mean Corpuscular Hemoglobin 29.2 pg (27.0-31.0); Mean Corpuscular Volume 91.4 fL (78.0-98.0); Mean Platelet Volume 8.7 fL (7.4-10.4); Monocytes 2 % (0-10); Neutrophil 72 % (42-75); Platelet Count 196 thou/uL (130-400); Red Blood Cell (RBC) Count 4.54 mill/uL (4.20-5.40); White Blood Cell (WBC) Count 13.6 thou/uL (4.8-10.8)
[2020-05-23] MEDS ORDERED: Carvedilol 3.125 MG TAB PO SCH (08:00)
--- NOTE | 2020-05-23 08:00 | RAD ---
XR Chest 1 View Portable History: Pneumonia Comparison: Radiograph prior day Findings: Patient has been extubated and the enteric tube has been removed. Heart size markedly enlar ged. Small-moderate layering pleural effusions. Right perihilar airspace opacities are similar. Impression: Interval extubation and removal of the enteric tube without complication.
--- NOTE | 2020-05-23 08:54 | PRG ---
DATE OF SERVICE: 05/23/2020 SUBJECTIVE: The patient was successfully extubated yesterday. She was somewhat confused, but calm. OBJECTIVE: VITAL SIGNS: Temperature 98.5, pulse 100, blood pressure 154/94, O2 saturation generally in the 90s. Intake 1770, output 4215. HEENT: Unremarkable. NECK: No JVD. CHEST: Clear anteriorly. CARDIOVASCULAR: S1, S2. Slightly tachycardic. ABDOMEN: Soft. EXTREMITIES: No edema. LABORATORY DATA: White blood cell count 13.6, hematocrit 41.5, and platelet count 196. Sodium 141, potassium 3.9, chloride 106, CO2 of 21, BUN 26, creatinine 1.3, and glucose 123. Troponin 8.1. ASSESSMENT: 1. Non-Q-wave myocardial infarction. 2. Status post acute respiratory failure, requiring mechanical ventilation. 3. Mild metabolic encephalopathy. 4. Systolic heart failure with ejection fraction of 20% to 25%. 5. Possible pneumonia. PLAN: She can be transferred out to the telemetry unit. At some point, she is going to need a cardiac catheterization, but this can probably wait until she is more stable. Since nothing has grown out in terms of staphylococcal organisms, I think it would be safe to stop the vancomycin. I will switch her over to oral Omnicef. Job ID: [id number]
[2020-05-23] MEDS: Lisinopril 10 MG TAB PO SCH (08:56)
[2020-05-23] MEDS: Famotidine/PF 20 mg/2ml Vial SLOW IVP SCH (08:56)
[2020-05-23] MEDS: Enoxaparin Sodium 30 MG/0.3 ML SYRINGE SC SCH (08:56)
[2020-05-23] MEDS: Aspirin 81 mg Enteric Coated Tablet PO SCH (08:56)
[2020-05-23] MEDS: Cefdinir 300 MG CAP PO SCH (09:11)
[2020-05-23] MEDS: Acyclovir 200 mg Capsule PO SCH (13:02)
[2020-05-23] MEDS: Loratadine 10 MG TAB PO SCH (13:03)
[2020-05-23] MEDS: Sodium Chloride 0.9% 1,000 ML IV SCH (13:03)
[2020-05-23] MEDS: Pregabalin 50 MG CAP PO SCH ×2 (13:03→21:00)
[2020-05-23] MEDS ORDERED: Haloperidol Lactate 5 MG/ML VIAL ONE (13:15)
--- NOTE | 2020-05-23 14:14 | PRG ---
DATE OF SERVICE: 05/23/2020 SUBJECTIVE: Ms. Fernández remains confused and disoriented. She is very restless according to the nurse. OBJECTIVE: VITAL SIGNS: Blood pressure 132/88, pulse 88, it is regular. LUNGS: Clear. CARDIAC: Normal S1, normal S2. ABDOMEN: Soft, nontender. LABORATORY DATA: Blood cultures apparently are all negative. ASSESSMENT: 1. Status post non-ST elevation myocardial infarction. 2. Confusion, disorientation, probably related to the previous episode. PLAN: 1. Transfer to telemetry. 2. Proceed to cardiac catheterization, hopefully, once her mental status improves some. The nurse said she takes her medicines by mouth sporadically. She is worried about aspiration. I tentatively could plan for catheterization on Thursday if the patient is stable. It looks like previously her ejection fraction was normal according to the notes. Job ID: [id number]
[2020-05-23] MEDS ORDERED: Furosemide 40 MG/4 ML VIAL IVP SCH (15:00)
[2020-05-23] MEDS ORDERED: Lorazepam 2 MG/ML VIAL ONE (17:03)
[2020-05-23] MEDS: Carvedilol 3.125 MG TAB PO SCH (17:04)
--- NOTE | 2020-05-23 17:44 | PDOC.HOSPP ---
- Subjective Subjective: s/p extubated yesterday. remains confused and trying to get out of bed. Required frequent re-directions. - Objective Vital Signs & Weight: Vital Signs (12 hours) Temp Pulse BP Pulse Ox 05/23/20 17:20 106 H 05/23/20 17:00 99.7 F H 05/23/20 15:00 99.2 F 05/23/20 13:59 91 L 05/23/20 12:00 99.0 F 05/23/20 08:56 147/93 H 05/23/20 08:00 98.6 F 94 L Weight Admit Weight 149 lb 14.4 oz Weight 154 lb 12.232 oz Most Recent Monitor Data Heart Rate from ECG 109 NIBP 172/119 NIBP BP-Mean 136 Respiration from ECG 48 SpO2 93 I&O: 05/22/20 05/23/20 05/24/20 06:59 06:59 06:59 Intake Total 1742.7 1778 30 Output Total 566 4215 660 Balance 1177.7 -2437 -630 Result Diagrams: 05/23/20 03:50 05/23/20 03:50 Additional Labs: Accuchecks 05/22/20 22:05 POC Glucose 118 H Radiology Reviewed by me: Yes EKG Reviewed by me: Yes Hospitalist ROS - Medication Medications: Active Medications Generic Name Dose Route Start Last Admin Trade Name Freq PRN Reason Stop Dose Admin Acyclovir 200 mg 05/23/20 09:00 05/23/20 13:02 Zovirax PO 05/30/20 09:01 Not Given QAM [facility] Aspirin 81 mg 05/22/20 09:00 05/23/20 08:56 Ecotrin PO 81 mg DAILY JAIR Administration Budesonide 9 mg 05/23/20 09:00 05/23/20 13:02 Entocort Ec PO Not Given QAM JAIR Carvedilol 6.25 mg 05/23/20 17:00 05/23/20 17:04 Coreg PO Not Given BID-WM JAIR Cefdinir 600 mg 05/23/20 09:00 05/23/20 09:11 Omnicef PO 600 mg DAILY JAIR Administration Enoxaparin Sodium 30 mg 05/21/20 09:00 05/23/20 08:56 Lovenox SC 30 mg 09 JAIR Administration Famotidine 20 mg 05/21/20 09:00 08/19/20 08:56 Pepcid SLOW IVP 20 mg DAILY JAIR Administration Insulin Human Regular 0 units 05/21/20 09:06 05/21/20 11:58 Humulin R SC 4 unit .MODERATE SLIDING SC PRN Administration Moderate Correctional Scale Lisinopril 10 mg 05/23/20 09:00 05/23/20 08:56 Zestril PO 10 mg DAILY JAIR Administration Loratadine 10 mg 05/23/20 09:00 05/23/20 13:03 Claritin PO Not Given DAILY JAIR Pregabalin 100 mg 05/22/20 21:00 05/23/20 13:03 Lyrica PO Not Given BID JAIR Hosp A/P - Plan - Exam General Appearance: NAD, intubated Eye: PERRL, anicteric sclera ENT: normocephalic atraumatic, no oropharyngeal lesions Neck: supple, symmetric, no JVD Heart: RRR, no murmur, no gallops Respiratory: CTAB, no wheezes, no rales Gastrointestinal: soft, non-tender, non-distended Extremities: no cyanosis, no clubbing Skin: normal turgor, no lesions, no rashes Neurological: cranial nerve grossly intact, normal sensation to touch Musculoskeletal: normal tone, normal strength Psychiatric - other findings: sedated ASSESSMENT and plan: #Status post cardiopulmonary arrest #Acute hypoxic respiratory failure-intubated #NSTEMI #Pneumonia-covered PCR was negative #Acute on chronic systolic heart failure with EF of 20-25% #Septic/cardiogenic shock, present on admission #Hypertension #ONEIL, POA 05/23/2020 Pt remains confused. Required frequent redirection. Cont abx. Appreciate cardiology input, plan for LHC when mental status improved. Added low dose BB given depressed EF. 05/22/2020 Patient is successfully extubated today. Patient tolerating nasal cannula. Cardiology evaluated and started on IV diuresis. Ultimately, patient will need a left heart cath at some point. Waiting on records from cardiology office Continue management as per scrum project manager and cardiology. Updated family members. Replete lytes. 05/21/2020 I had a long discussion with her and update him with regard to her status. Patient remains intubated. Appreciate input from specialists cont IV abx. K has been repleted. follow AM labs. Pt will likely need a LHC at some point. Echo reviewed, depressed EF.
[2020-05-23] MEDS ORDERED: Enalaprilat Dihydrate 1.25 MG in Dextrose 5% in Water 50 ML IVPB SCH (18:00)
[2020-05-23] MEDS ORDERED: Propofol 1,000 MG/100 ML VIAL IV ONE (18:59)
[2020-05-23] MEDS: Haloperidol Lactate 5 MG/ML VIAL SLOW IVP PRN (22:33)
[2020-05-24] MEDS: Enalaprilat Dihydrate 1.25 MG in Dextrose 5% in Water 50 ML IVPB SCH ×4 (02:53→20:34)
[2020-05-24] MEDS: Haloperidol Lactate 5 MG/ML VIAL SLOW IVP PRN (03:20)
[2020-05-24 03:50] LABS: ALT (SGPT) 237 U/L (8-55); AST (SGOT) 127 U/L (5-34); Albumin 3.4 g/dL (3.4-4.8); Alkaline Phosphatase 70 U/L (40-110); Anion Gap 20 mmol/L (10-20); BUN (Urea Nitrogen) 33 mg/dL (9.8-20.1); Bilirubin, Total 0.8 mg/dL (0.2-1.2); Calc. Creatinine Clearance 40 mL/min (70-130); Calcium 8.2 mg/dL (7.8-10.44); Carbon Dioxide 21 mmol/L (23-31); Chloride 109 mmol/L (98-107); Estimated GFR-MDRD 42; Globulin 2.9 g/dL (2.4-3.5); Glucose 149 mg/dL (83-110); Magnesium 1.7 mg/dL (1.6-2.6); Potassium 3.5 mmol/L (3.5-5.1); Protein, Total 6.3 g/dL (6.0-8.3); Sodium 146 mmol/L (136-145)
[2020-05-24 04:33] LABS: Band 7 % (5-11); Hemoglobin 13.5 g/dL (12.0-16.0); Lymphocytes 6 % (21-51); MDiff Complete? YES; Mean Corpuscular HGB CONC 33.6 g/dL (32.0-36.0); Mean Corpuscular Hemoglobin 30.2 pg (27.0-31.0); Mean Corpuscular Volume 89.8 fL (78.0-98.0); Mean Platelet Volume 8.6 fL (7.4-10.4); Monocytes 6 % (0-10); Neutrophil 81 % (42-75); Platelet Count 199 thou/uL (130-400); RBC Distribution Width 13.9 % (11.5-14.5); Red Blood Cell (RBC) Count 4.48 mill/uL (4.20-5.40); White Blood Cell (WBC) Count 13.1 thou/uL (4.8-10.8)
[2020-05-24] MEDS ORDERED: Furosemide 20 MG/2 ML VIAL SLOW IVP SCH ×2 (08:30→16:00)
[2020-05-24] MEDS ORDERED: Carvedilol 3.125 MG TAB PO SCH (08:30)
[2020-05-24] MEDS ORDERED: Potassium Chloride 40 MEQ in Sodium Chloride 0.9% 250 ML 250 ML IVPB SCH (08:45)
[2020-05-24] MEDS: Famotidine/PF 20 mg/2ml Vial SLOW IVP SCH (08:48)
[2020-05-24] MEDS: Enoxaparin Sodium 30 MG/0.3 ML SYRINGE SC SCH (08:49)
[2020-05-24] MEDS: Pregabalin 50 MG CAP PO SCH ×2 (08:56→20:34)
[2020-05-24] MEDS: Loratadine 10 MG TAB PO SCH (08:58)
[2020-05-24] MEDS: Acyclovir 200 mg Capsule PO SCH (08:58)
[2020-05-24] MEDS: Aspirin 81 mg Enteric Coated Tablet PO SCH (08:58)
[2020-05-24] MEDS: Cefdinir 300 MG CAP PO SCH (08:58)
--- NOTE | 2020-05-24 09:11 | PRG ---
DATE OF SERVICE: 05/24/2020 SUBJECTIVE: The patient is breathing much better. She is much more awake and alert than she was yesterday. She wore BiPAP until about 7:30 this morning when it was discontinued. OBJECTIVE: VITAL SIGNS: Temperature 98, pulse 107, blood pressure 157/98, O2 saturations 96%, respiratory rate is in the high teens. HEENT: Unremarkable. NECK: No adenopathy or JVD. CHEST: Fairly clear. CARDIAC: S1, S2. Regular. ABDOMEN: Soft. EXTREMITIES: No edema. LABORATORY DATA: White blood count 13, hematocrit 40, and platelet count 199. Sodium 146, potassium 3.5, chloride 109, CO2 of 21, BUN 33, creatinine 1.2, glucose 149. BNP 3195. Chest x-ray has shown a little more clearing. ASSESSMENT: 1. Myocardial infarction. 2. Diastolic/systolic heart failure. 3. Respiratory failure secondary to pulmonary edema. PLAN: 1. More diuresis plan for today. 2. Possible cardiac catheterization tomorrow. We will follow. Job ID: [id number]
--- NOTE | 2020-05-24 09:19 | PRG ---
DATE OF SERVICE: 05/24/2020 SUBJECTIVE: Ms. Fernández became more short of breath last night. She responded to intravenous Lasix with a good output. Today, she is still confused, but somewhat better than yesterday, but she still does not really understand what is happening completely. She does not have chest pain or pressure. OBJECTIVE: VITAL SIGNS: Her blood pressure is variable 157/99, pulse is 110 and sinus rhythm. LUNGS: Clear anteriorly and laterally. CARDIAC: She is tachycardic for rest. ABDOMEN: Soft, nontender. EXTREMITIES: No clubbing or cyanosis. No edema. She has hematoma in the right groin, IV site. ASSESSMENT: 1. Confusion, disorientation, probably hypoxic episode, slowly improving. 2. Congestive heart failure, systolic, acute. 3. Status post [id number] infarction. PLAN: 1. Give her some additional Lasix. 2. Replete potassium. 3. intravenous ERON inhibitor. 4. At this time, I cannot reliably take oral medicines, consideration for cardiac catheterization once more clinically stable. Prognosis guarded. Job ID: [id number]
--- NOTE | 2020-05-24 10:06 | RAD ---
CHEST 1 VIEW PORTABLE: Date: 05/24/2020 HISTORY: Follow-up respiratory failure. COMPARISON: 05/23/2020. FINDINGS: Cardiomegaly. Bilateral vascular congestion with probable small pleural effusions. IMPRESSION: Stable cardiomegaly with vascular congestion and probably small pleural effusions. POS: OFF
[2020-05-24] MEDS: Carvedilol 3.125 MG TAB PO SCH ×2 (10:15→16:31)
[2020-05-24] MEDS: Lisinopril 10 MG TAB PO SCH (10:17)
--- NOTE | 2020-05-24 17:50 | PDOC.HOSPP ---
- Subjective Subjective: Mental status much improved. update on the phone. No acute event overnight - Objective Vital Signs & Weight: Vital Signs (12 hours) Temp BP Pulse Ox 05/24/20 16:00 98.7 F 05/24/20 15:09 160/99 H 05/24/20 12:00 97.6 F 05/24/20 10:17 103/62 05/24/20 08:00 98.0 F 96 05/24/20 07:08 98 Weight Admit Weight 149 lb 14.4 oz Weight 146 lb Most Recent Monitor Data Heart Rate from ECG 84 NIBP 130/83 NIBP BP-Mean 98 Respiration from ECG 17 SpO2 98 I&O: 05/23/20 05/24/20 05/25/20 06:59 06:59 06:59 Intake Total 6331 331 6459 Output Total 4215 1740 577 Balance -2437 -1606 551 Result Diagrams: 05/24/20 03:00 05/25/20 03:45 Hospitalist ROS - Medication Medications: Active Medications Generic Name Dose Route Start Last Admin Trade Name Geoffq PRN Reason Stop Dose Admin Acyclovir 200 mg 05/23/20 09:00 05/24/20 08:58 Zovirax PO 05/30/20 09:01 200 mg QAM JAIR Administration Budesonide 9 mg 05/23/20 09:00 05/24/20 10:16 Entocort Ec PO 9 mg QAM JAIR Administration Carvedilol 3.125 mg 05/24/20 17:00 05/24/20 16:31 Coreg PO 3.125 mg BID-WM JAIR Administration Cefdinir 600 mg 05/23/20 09:00 05/24/20 08:58 Omnicef PO 600 mg DAILY JAIR Administration Enoxaparin Sodium 30 mg 05/21/20 09:00 05/24/20 08:49 Lovenox SC 30 mg 0900 JAIR Administration Famotidine 20 mg 05/21/20 09:00 05/24/20 08:48 Pepcid SLOW IVP 20 mg DAILY JAIR Administration Furosemide 20 mg 05/24/20 16:00 05/24/20 16:31 Lasix SLOW IVP 05/24/20 18:00 20 mg 1600 JAIR Administration Haloperidol Lactate 2 mg 05/23/20 13:16 05/24/20 03:20 Haldol SLOW IVP 2 mg Q3H PRN Administration Agitation Enalaprilat 1.25 mg/ Dextrose/ 51 mls @ 200 mls/hr 05/24/20 03:00 05/24/20 15 :09 Water IVPB 51 mls 0300,0900,1500,2100 JAIR Administration Insulin Human Regular 0 units 05/21/20 09:06 05/21/20 11:58 Humulin R SC 4 unit .MODERATE SLIDING SC PRN Administration Moderate Correctional Scale Lisinopril 10 mg 05/23/20 09:00 05/24/20 10:17 Zestril PO 10 mg DAILY JAIR Administration Loratadine 10 mg 05/23/20 09:00 05/24/20 08:58 Claritin PO 10 mg DAILY JAIR Administration Pregabalin 100 mg 05/22/20 21:00 05/24/20 08:56 Lyrica PO 100 mg BID JAIR Administration Hosp A/P - Plan - Exam General Appearance: NAD. awake and alert Eye: PERRL, anicteric sclera ENT: normocephalic atraumatic, no oropharyngeal lesions Neck: supple, symmetric, no JVD Heart: RRR, no murmur, no gallops Respiratory: CTAB, no wheezes, no rales Gastrointestinal: soft, non-tender, non-distended Extremities: no cyanosis, no clubbing Skin: normal turgor, no lesions, no rashes Neurological: cranial nerve grossly intact, normal sensation to touch Musculoskeletal: normal tone, normal strength Psychiatric - other findings: confused ASSESSMENT and plan: #Status post cardiopulmonary arrest #Acute hypoxic respiratory failure-intubated #NSTEMI #Pneumonia-covered PCR was negative #Acute on chronic systolic heart failure with EF of 20-25% #Septic/cardiogenic shock, present on admission #Hypertension #ONEIL, POA 05/24/2020 Mental status improved. cont IV diuresis as per cardiology. Add low dose Seroquel at bedtime. Possible LHC in AM if mental status improved. AM Labs 05/23/2020 Pt remains confused. Required frequent redirection. Cont abx. Appreciate cardiology input, plan for LHC when mental status improved. Added low dose BB given depressed EF. 05/22/2020 Patient is successfully extubated today. Patient tolerating nasal cannula. Cardiology evaluated and started on IV diuresis. Ultimately, patient will need a left heart cath at some point. Waiting on records from cardiology office Continue management as per certified adapted physical educator and cardiology. Updated family members. Replete amie. 05/21/2020 I had a long discussion with her and update him with regard to her status. Patient remains intubated. Appreciate input from specialists cont IV abx. K has been repleted. follow AM labs. Pt will likely need a LHC at some point. Echo reviewed, depressed EF.
[2020-05-25] MEDS: Enalaprilat Dihydrate 1.25 MG in Dextrose 5% in Water 50 ML IVPB SCH ×2 (03:49→09:00)
[2020-05-25 04:31] LABS: Anion Gap 12 mmol/L (10-20); BUN (Urea Nitrogen) 41 mg/dL (9.8-20.1); Calc. Creatinine Clearance 36 mL/min (70-130); Calcium 8.3 mg/dL (7.8-10.44); Carbon Dioxide 29 mmol/L (23-31); Chloride 106 mmol/L (98-107); Estimated GFR-MDRD 40; Glucose 140 mg/dL (83-110); Magnesium 1.7 mg/dL (1.6-2.6); Sodium 143 mmol/L (136-145)
--- NOTE | 2020-05-25 08:00 | EKG ---
Test Reason : Blood Pressure : / mmHG Vent. Rate : 086 BPM Atrial Rate : 086 BPM P-R Int : 186 ms QRS Dur : 078 ms QT Int : 398 ms P-R-T Axes : 062 -57 -31 degrees QTc Int : 476 ms Normal sinus rhythm Left axis deviation Low voltage QRS Inferior infarct , age undetermined Cannot rule out Anteroseptal infarct , age undetermined Abnormal ECG No previous ECGs available Confirmed by DR. Eligio MO ([id number]) on 05/25/2020 8:00:03 AM Referred By: CHELY Confirmed By:DR. Eligio MO
[2020-05-25] MEDS: Pregabalin 50 MG CAP PO SCH ×2 (08:58→20:05)
[2020-05-25] MEDS: Carvedilol 3.125 MG TAB PO SCH (08:58)
[2020-05-25] MEDS: Cefdinir 300 MG CAP PO SCH (08:58)
[2020-05-25] MEDS: Lisinopril 10 MG TAB PO SCH (08:59)
[2020-05-25] MEDS: Acyclovir 200 mg Capsule PO SCH (09:00)
[2020-05-25] MEDS: Aspirin 81 mg Enteric Coated Tablet PO SCH (09:00)
[2020-05-25] MEDS: Famotidine/PF 20 mg/2ml Vial SLOW IVP SCH (09:00)
[2020-05-25] MEDS: Loratadine 10 MG TAB PO SCH (09:00)
[2020-05-25] MEDS ORDERED: Aspirin 300 MG Suppository PR SCH (09:00)
--- NOTE | 2020-05-25 09:06 | PRG ---
DATE OF SERVICE: 05/25/2020 SUBJECTIVE: Ms. Fernández is much more awake and alert than she has been in the last several days. She did wear BiPAP last night. OBJECTIVE: VITAL SIGNS: Temperature 97.9, pulse 67, blood pressure 113/73, O2 saturation 100% on nasal cannula. HEENT: Unremarkable. NECK: No adenopathy or JVD. CHEST: Clear anteriorly. CARDIOVASCULAR: S1, S2. Regular. ABDOMEN: Soft. EXTREMITIES: No edema. LABORATORY DATA: Sodium 143, potassium 4, chloride 106, CO2 of 29, BUN 41, creatinine 1.2, glucose 140. ASSESSMENT: 1. Acute systolic heart failure. 2. Myocardial infarction. 3. Status post respiratory failure with pulmonary edema. PLAN: 1. Cardiac catheterization when timing okay with Cardiology. 2. The patient is being intermittently diuresed. Her renal function has bumped a little so the diuretics may need to be held today. 3. From my standpoint, she can go to the [facility]. Job ID: [id number]
--- NOTE | 2020-05-25 09:10 | PRG ---
DATE OF SERVICE: 05/25/2020 SUBJECTIVE: Ms. Fernández is much more awake and alert today. She is sleepy, but she knows where she is. She is at [place]. She knows she has had a heart attack. She is not having chest pain and she is not short of breath. OBJECTIVE: VITAL SIGNS: Her blood pressure is 135/83, pulse 76 and sinus. LUNGS: Clear. CARDIAC: Normal S1 and normal S2. LABORATORY DATA: Creatinine is 1.29. The GFR is stable at 40. ASSESSMENT: 1. Status post myocardial infarction. 2. Severely depressed left ventricular function with an ejection fraction of 20% to 25%. Suboptimal echocardiogram, but the septum and apex are dyskinetic. 3. Renal failure stage 3, stable. PLAN: Recommend she proceed to cardiac catheterization. Discussed risk of stroke, heart attack, iodine allergy, loss of blood supply to leg or kidney, risk of stent thrombosis, stent restenosis, vessel perforation resulting in life-threatening consequences, . All discussed with the patient and the by the phone. They understand and wished to proceed. Prognosis guarded. Job ID: [id number]
--- NOTE | 2020-05-25 10:34 | PDOC.FMACP ---
Advance Care Planning - Problem (1) Myocardial infarction Status: Acute Code(s): I21.9 - ACUTE MYOCARDIAL INFARCTION, UNSPECIFIED (2) Acute respiratory failure Status: Acute Code(s): J96.00 - ACUTE RESPIRATORY FAILURE, UNSP W HYPOXIA OR HYPERCAPNIA (3) Hypertension Status: Acute Code(s): I10 - ESSENTIAL (PRIMARY) HYPERTENSION (4) Sudden cardiac arrest Status: Acute Code(s): I46.9 - CARDIAC ARREST, CAUSE UNSPECIFIED - Note Participants: patient, family, palliative care Summary: Palliative Care addressed Advanced Care Planning. The diagnosis, prognosis and goals of care were discussed. Appropriate forms and documentation to accomplish the goals of care were discussed. All questions were answered. Mrs Fernández continue to desire to remain with full resuscitation measures. Mr Fernández confirms they have directive to physician and MPOA at home, states he will bring to the hospital to have copies placed in patient medical record. Confirmed Mr Fernández (patient spouse) is primary decision maker in the event patient is unable to make wishes known. Please also refer to Palliative Care notes in note section. Time Spent (mins): 20
--- NOTE | 2020-05-25 10:35 | PDOC.PALFU ---
Palliative Care Follow-up Note Goal of care is continued meaningful recovery, family support provided. Advanced Care planning complete. Palliative Care will sign off, if we can assist in the future please reconsult for additional support for revisiting Goal of care, complex decision making, coping, family support, symptom management.
[2020-05-25] MEDS ORDERED: Iopamidol 370 76% 100 ML VIAL ONE (13:24)
[2020-05-25] MEDS ORDERED: Nitroglycerin 0.4 MG TAB (25 Tab Bottle) SL PRN (13:29)
[2020-05-25] MEDS ORDERED: Sodium Chloride 0.9% 200 ML IV PRN (13:29)
[2020-05-25] MEDS ORDERED: Nitroglycerin 2% Ointment 1 INCH/1 GM Packet ONE (13:30)
--- NOTE | 2020-05-25 16:31 | PDOC.HOSPP ---
- Subjective Subjective: Patient was seen examined at bedside. Her mental status is much better doing this morning. Patient alert and oriented x3. She is somewhat somnolent from the medication. Patient underwent left heart cath, none ischemic cardiomyopathy , likely due to Takotsubo syndrome. I have update family members on the phone, her daughter. Her is not available - Objective Vital Signs & Weight: Vital Signs (12 hours) Temp Pulse Pulse Pulse BP BP BP 05/25/20 12:00 98 F 05/25/20 09:16 84 82 151/96 H 131/81 05/25/20 09:00 146/89 H 05/25/20 08:59 150/95 H 05/25/20 07:46 05/25/20 07:00 97.9 F 05/25/20 06:50 70 Pulse Ox Pulse Ox Pulse Ox 05/25/20 12:00 05/25/20 09:16 100 100 05/25/20 09:00 05/25/20 08:59 05/25/20 07:46 100 05/25/20 07:00 05/25/20 06:50 Weight Admit Weight 149 lb 14.4 oz Weight 142 lb 13.753 oz Most Recent Monitor Data Heart Rate from ECG 72 NIBP 129/84 NIBP BP-Mean 99 Respiration from ECG 16 SpO2 100 I&O: 05/24/20 05/25/20 05/26/20 06:59 06:59 06:59 Intake Total 134 1788 290 Output Total 1740 1017 345 Balance -1606 771 -55 Result Diagrams: 05/24/20 03:00 05/25/20 03:45 Hospitalist ROS - Medication Medications: Active Medications Generic Name Dose Route Start Last Admin Trade Name Freq PRN Reason Stop Dose Admin Acyclovir 200 mg 05/23/20 09:00 05/25/20 09:00 Zovirax PO 05/30/20 09:01 200 mg QAM JAIR Administration Aspirin 81 mg 05/25/20 09:00 05/25/20 09:00 Ecotrin PO 81 mg DAILY JAIR Administration Budesonide 9 mg 05/23/20 09:00 05/25/20 08:58 Entocort Ec PO 9 mg QAM JAIR Administration Cefdinir 600 mg 05/23/20 09:00 05/25/20 08:58 Omnicef PO 600 mg DAILY JAIR Administration Famotidine 20 mg 05/21/20 09:00 05/25/20 09:00 Pepcid SLOW IVP 20 mg DAILY JAIR Administration Haloperidol Lactate 2 mg 05/23/20 13:16 05/24/20 03:20 Haldol SLOW IVP 2 mg Q3H PRN Administration Agitation Insulin Human Regular 0 units 05/21/20 09:06 05/21/20 11:58 Humulin R SC 4 unit .MODERATE SLIDING SC PRN Administration Moderate Correctional Scale Lisinopril 10 mg 05/23/20 09:00 05/25/20 08:59 Zestril PO 10 mg DAILY JAIR Administration Loratadine 10 mg 05/23/20 09:00 05/25/20 09:00 Claritin PO 10 mg DAILY JAIR Administration Pregabalin 100 mg 05/22/20 21:00 05/25/20 08:58 Lyrica PO 100 mg BID JAIR Administration Quetiapine Fumarate 50 mg 05/24/20 21:00 05/24/20 20:34 Seroquel PO 50 mg HS JAIR Administration Hosp A/P - Plan - Exam General Appearance: NAD. awake and alert Eye: PERRL, anicteric sclera ENT: normocephalic atraumatic, no oropharyngeal lesions Neck: supple, symmetric, no JVD Heart: RRR, no murmur, no gallops Respiratory: CTAB, no wheezes, no rales Gastrointestinal: soft, non-tender, non-distended Extremities: no cyanosis, no clubbing Skin: normal turgor, no lesions, no rashes Neurological: cranial nerve grossly intact, normal sensation to touch Musculoskeletal: normal tone, normal strength Psychiatric - other findings: confused ASSESSMENT and plan: #Status post cardiopulmonary arrest #Acute hypoxic respiratory failure-s/p extubated #NSTEMI -status post left heart cath on 05/25/2020, nonischemic cardiomyopathy, secondary to Takotsubo syndrome #Pneumonia-covered PCR was negative #Acute on chronic systolic heart failure with EF of 20-25% #Septic/cardiogenic shock, present on admission #Hypertension #ONEIL, POA 05/25/2020 Her mental status is much improved this morning. We will decrease her Seroquel to 25 mg at bedtime given her somnolent. Patient underwent left heart cath today, no evidence of ischemic heart disease. Likely due to Takotsubo syndrome given her severe depressed EF. Pt is on low dose BB, and ACEi IV. No CP or SOB. Pt is stable to transfer to tele when OK with specialists. I have updated family on the phone. PT eval. Cont empiric abx. 05/24/2020 Mental status improved. cont IV diuresis as per cardiology. Add low dose Seroquel at bedtime. Possible LHC in AM if mental status improved. AM Labs 05/23/2020 Pt remains confused. Required frequent redirection. Cont abx. Appreciate cardiology input, plan for LHC when mental status improved. Added low dose BB given depressed EF. 05/22/2020 Patient is successfully extubated today. Patient tolerating nasal cannula. Cardiology evaluated and started on IV diuresis. Ultimately, patient will need a left heart cath at some point. Waiting on records from cardiology office Continue management as per director athletic and cardiology. Updated family members. Replete amie. 05/21/2020 I had a long discussion with her and update him with regard to her status. Patient remains intubated. Appreciate input from specialists cont IV abx. K has been repleted. follow AM labs. Pt will likely need a LHC at some point. Echo reviewed, depressed EF.
--- NOTE | 2020-05-25 16:40 | EKG ---
Test Reason : Blood Pressure : / mmHG Vent. Rate : 105 BPM Atrial Rate : 105 BPM P-R Int : 188 ms QRS Dur : 080 ms QT Int : 358 ms P-R-T Axes : 061 -43 041 degrees QTc Int : 473 ms Sinus tachycardia Left axis deviation Low voltage QRS Inferior infarct (cited on or before 21-MAY-2020) Cannot rule out Anteroseptal infarct (cited on or before 21-MAY-2020) Abnormal ECG When compared with ECG of 21-MAY-2020 10:03, (Unconfirmed) Nonspecific T wave abnormality has replaced inverted T waves in Inferior leads T wave inversion no longer evident in Anterior leads Nonspecific T wave abnormality, worse in Lateral leads Confirmed by DR. Eligio MO ([id number]) on 05/25/2020 4:40:30 PM Referred By: CHELY Confirmed By:DR. Eligio MO
[2020-05-25] MEDS: Carvedilol 6.25 MG TAB PO SCH (17:34)
[2020-05-25] MEDS: Insulin Regular 300 UNITS/3 ML VIAL SC PRN (20:15)
[2020-05-26 06:27] LABS: #Eosinphils 0.2 thou/uL (0.0-0.7); #Lymphocytes 1.5 thou/uL (1.20-3.40); #Monocytes 0.8 thou/uL (0.11-0.59); #Neutrophils 6.8 thou/uL (1.40-6.50); %Basophils 0.3 % (0.0-1.0); %Eosinophils 2.1 % (0.0-10.0); %Lymphocytes 15.7 % (21.0-51.0); %Monocytes 8.4 % (0.0-10.0); %Neutrophils 73.5 % (42.0-75.0); Mean Corpuscular HGB CONC 31.9 g/dL (32.0-36.0); Mean Corpuscular Hemoglobin 29.5 pg (27.0-31.0); Mean Corpuscular Volume 92.3 fL (78.0-98.0); Mean Platelet Volume 8.6 fL (7.4-10.4); Platelet Count 177 thou/uL (130-400); RBC Distribution Width 14.1 % (11.5-14.5); Red Blood Cell (RBC) Count 4.08 mill/uL (4.20-5.40); White Blood Cell (WBC) Count 9.2 thou/uL (4.8-10.8)
[2020-05-26 06:47] LABS: Anion Gap 12 mmol/L (10-20); BUN (Urea Nitrogen) 34 mg/dL (9.8-20.1); Calc. Creatinine Clearance 45 mL/min (70-130); Calcium 8.4 mg/dL (7.8-10.44); Carbon Dioxide 29 mmol/L (23-31); Chloride 103 mmol/L (98-107); Estimated GFR-MDRD 52; Glucose 120 mg/dL (83-110); Magnesium 1.7 mg/dL (1.6-2.6); Potassium 4.3 mmol/L (3.5-5.1); Sodium 140 mmol/L (136-145)
[2020-05-26] MEDS: Loratadine 10 MG TAB PO SCH (08:16)
[2020-05-26] MEDS: Cefdinir 300 MG CAP PO SCH (08:16)
[2020-05-26] MEDS: Aspirin 81 mg Enteric Coated Tablet PO SCH (08:16)
[2020-05-26] MEDS: Lisinopril 10 MG TAB PO SCH (08:16)
[2020-05-26] MEDS: Acyclovir 200 mg Capsule PO SCH (08:16)
[2020-05-26] MEDS: Enoxaparin Sodium 30 MG/0.3 ML SYRINGE SC SCH (08:17)
[2020-05-26] MEDS: Pregabalin 50 MG CAP PO SCH ×2 (08:17→21:31)
[2020-05-26] MEDS: Carvedilol 6.25 MG TAB PO SCH ×2 (08:17→16:53)
[2020-05-26] MEDS: Furosemide 20 MG/2 ML VIAL SLOW IVP SCH (08:17)
[2020-05-26] MEDS: Famotidine/PF 20 mg/2ml Vial SLOW IVP SCH (08:17)
--- NOTE | 2020-05-26 09:30 | PRG ---
DATE OF SERVICE: 05/26/2020 SUBJECTIVE: She is doing well, has no acute complaints. Cardiac catheterization results yesterday were noted. OBJECTIVE: VITAL SIGNS: Temperature 97.8, pulse 75, blood pressure 153/101, and O2 saturation 100%. HEENT: Unremarkable. NECK: No JVD. CHEST: Clear. CARDIAC: S1 and S2. Regular. ABDOMEN: Soft. EXTREMITIES: No edema. ASSESSMENT: 1. Takotsubo syndrome with depressed EF, but normal coronary arteries. 2. Status post respiratory failure related to congestive heart failure. PLAN: The patient can be transferred to the floor for further cardiac care. I think we can go ahead and stop the antibiotics. Her electrolytes look good, so I will go ahead and stop her daily labs. Further care will be per Cardiology and Internal Medicine. She no longer needs the BiPAP. Please recall if further assistance needed. Job ID: [id number]
--- NOTE | 2020-05-26 11:51 | PDOC.HOSPP ---
- Subjective Encounter Date: 05/26/20 Encounter Time: 10:40 Subjective: Patient is verbalizing well. She is alert oriented x3. Not in any distress. Status post cath her BNP is quite elevated at 3195. Her magnesium normalized. She has elevation in her liver function tests. - Objective Vital Signs & Weight: Vital Signs (12 hours) Temp Pulse Resp BP BP Pulse Ox 05/26/20 10:50 98.2 F 71 16 98/57 L 99 05/26/20 08:17 153/101 H 05/26/20 08:16 153/101 H 05/26/20 07:22 100 05/26/20 07:00 97.8 F 05/26/20 04:00 98.3 F 05/26/20 00:00 98.3 F Weight Admit Weight 149 lb 14.4 oz Weight 143 lb 15.39 oz Most Recent Monitor Data Heart Rate from ECG 69 NIBP 119/69 NIBP BP-Mean 85 Respiration from ECG 16 SpO2 100 I&O: 05/25/20 05/26/20 05/27/20 06:59 06:59 06:59 Intake Total 1788 1490 480 Output Total 1017 910 825 Balance 771 580 -345 Result Diagrams: 05/26/20 06:12 05/26/20 06:12 Additional Labs: Accuchecks 05/25/20 20:15 POC Glucose 252 H Hospitalist ROS - Medication Medications: Active Medications Generic Name Dose Route Start Last Admin Trade Name Freq PRN Reason Stop Dose Admin Acyclovir 200 mg 05/23/20 09:00 05/26/20 08:16 Zovirax PO 05/30/20 09:01 200 mg QAM JAIR Administration Aspirin 81 mg 05/25/20 09:00 05/26/20 08:16 Ecotrin PO 81 mg DAILY JAIR Administration Budesonide 9 mg 05/23/20 09:00 05/26/20 08:17 Entocort Ec PO 9 mg QAM JAIR Administration Carvedilol 6.25 mg 05/25/20 17:00 05/26/20 08:17 Coreg PO 6.25 mg BID-WM JAIR Administration Enoxaparin Sodium 30 mg 05/26/20 09:00 05/26/20 08:17 Lovenox SC 30 mg 0900 JAIR Administration Famotidine 20 mg 05/21/20 09:00 05/26/20 08:17 Pepcid SLOW IVP 20 mg DAILY JAIR Administration Furosemide 20 mg 05/26/20 09:00 05/26/20 08:17 Lasix SLOW IVP 20 mg DAILY JAIR Administration Haloperidol Lactate 2 mg 05/23/20 13:16 05/24/20 03:20 Haldol SLOW IVP 2 mg Q3H PRN Administration Agitation Insulin Human Regular 0 units 05/21/20 09:06 05/25/20 20:15 Humulin R SC 4 unit .MODERATE SLIDING SC PRN Administration Moderate Correctional Scale Lisinopril 10 mg 05/23/20 09:00 05/26/20 08:16 Zestril PO 10 mg DAILY JAIR Administration Loratadine 10 mg 05/23/20 09:00 05/26/20 08:16 Claritin PO 10 mg DAILY JAIR Administration Pregabalin 100 mg 05/22/20 21:00 05/26/20 08:17 Lyrica PO 100 mg BID JAIR Administration Quetiapine Fumarate 50 mg 05/24/20 21:00 05/25/20 20:56 Seroquel PO 50 mg HS JAIR Administration - Exam General Appearance: NAD, awake alert Eye: PERRL ENT: normocephalic atraumatic Neck: supple Heart: RRR Respiratory: CTAB, normal chest expansion Gastrointestinal: soft, normal bowel sounds Neurological: no focal deficits Psychiatric: A&O x 3 Hosp A/P - Plan #Status post cardiopulmonary arrest #Acute hypoxic respiratory failure-s/p extubated #NSTEMI -status post left heart cath on 05/25/2020, nonischemic cardiomyopathy, secondary to Takotsubo syndrome #Pneumonia-covered PCR was negative #Acute on chronic systolic heart failure with EF of 20-25% #Septic/cardiogenic shock, present on admission #Hypertension #ONEIL, POA -Mentation back to baseline -Status post cath - negative for ischemic heart disease Takotsubo cardiomyopathy - on low dose BB, and ACEi IV. - Repeat echo in 3 months and follow with the quality assurance inspector Dr. Bonner Change Seroquel to as needed Plan for rehab placement versus home health
[2020-05-26] MEDS ORDERED: hydrALAZINE 20 MG/ML VIAL SLOW IVP PRN (16:15)
[2020-05-26] MEDS ORDERED: Lisinopril 10 MG TAB PO SCH (16:45)
[2020-05-27] MEDS ORDERED: Lisinopril 10 MG TAB PO SCH (09:00)
[2020-05-27] MEDS: Aspirin 81 mg Enteric Coated Tablet PO SCH (09:03)
[2020-05-27] MEDS: Acyclovir 200 mg Capsule PO SCH (09:03)
[2020-05-27] MEDS: Pregabalin 50 MG CAP PO SCH ×2 (09:03→20:57)
[2020-05-27] MEDS: Carvedilol 6.25 MG TAB PO SCH ×2 (09:03→17:51)
[2020-05-27] MEDS: Loratadine 10 MG TAB PO SCH (09:04)
[2020-05-27] MEDS: Famotidine/PF 20 mg/2ml Vial SLOW IVP SCH (09:05)
[2020-05-27] MEDS: Furosemide 20 MG/2 ML VIAL SLOW IVP SCH (09:05)
[2020-05-27] MEDS: Amlodipine 10 MG TAB PO SCH (09:05)
[2020-05-27] MEDS: Enoxaparin Sodium 30 MG/0.3 ML SYRINGE SC SCH (09:05)
[2020-05-27] MEDS: Insulin Regular 300 UNITS/3 ML VIAL SC PRN (11:57)
--- NOTE | 2020-05-27 13:45 | PDOC.HOSPP ---
- Subjective Encounter Date: 05/27/20 Encounter Time: 10:30 Subjective: Patient completed her shower. A tech nearby. She feels much better. Patient is asking whether fatigue and tiredness is part of having WI. She is clinically improving every day. Mentation is improving even though she does have a signs of depression which is expected with a cardiac arrest and WI. I have explained the care plan including possible cath early next week. - Objective Vital Signs & Weight: Vital Signs (12 hours) Temp Pulse Resp BP Pulse Ox 05/27/20 11:52 97.9 F 74 14 132/72 95 05/27/20 07:56 97.8 F 81 16 175/97 H 96 05/27/20 03:28 98.4 F 93 23 H 161/69 H 96 Weight Admit Weight 149 lb 14.4 oz Weight 143 lb 3.2 oz Most Recent Monitor Data Heart Rate from ECG 69 NIBP 119/69 NIBP BP-Mean 85 Respiration from ECG 16 SpO2 100 I&O: 05/26/20 05/27/20 05/28/20 06:59 06:59 06:59 Intake Total 1490 930 Output Total 910 1375 Balance 580 -445 Result Diagrams: 05/26/20 06:12 05/26/20 06:12 Additional Labs: Accuchecks 05/27/20 05/27/20 11:32 05:31 POC Glucose 179 H 138 H Hospitalist ROS - Medication Medications: Active Medications Generic Name Dose Route Start Last Admin Trade Name Freq PRN Reason Stop Dose Admin Acyclovir 200 mg 05/23/20 09:00 05/27/20 09:03 Zovirax PO 05/30/20 09:01 200 mg QAM JAIR Administration Amlodipine Besylate 10 mg 05/27/20 09:00 05/27/20 09:05 Norvasc PO 10 mg DAILY JAIR Administration Aspirin 81 mg 05/25/20 09:00 05/27/20 09:03 Ecotrin PO 81 mg DAILY JAIR Administration Budesonide 9 mg 05/23/20 09:00 05/27/20 09:03 Entocort Ec PO 9 mg QAM JAIR Administration Enoxaparin Sodium 30 mg 05/26/20 09:00 05/27/20 09:05 Lovenox SC 30 mg 09 JAIR Administration Famotidine 20 mg 05/21/20 09:00 05/27/20 09:05 Pepcid SLOW IVP 20 mg DAILY JAIR Administration Furosemide 20 mg 05/26/20 09:00 05/27/20 09:05 Lasix SLOW IVP 20 mg DAILY JAIR Administration Hydralazine HCl 10 mg 05/26/20 16:15 05/26/20 16:57 Apresoline SLOW IVP 10 mg Q4H PRN Administration SBP> 150 Insulin Human Regular 0 units 05/21/20 09:06 05/27/20 11:57 Humulin R SC 2 unit .MODERATE SLIDING SC PRN Administration Moderate Correctional Scale Loratadine 10 mg 05/23/20 09:00 05/27/20 09:04 Claritin PO 10 mg DAILY JAIR Administration Pregabalin 100 mg 05/22/20 21:00 05/27/20 09:03 Lyrica PO 100 mg BID JAIR Administration - Exam General Appearance: NAD, awake alert Eye: PERRL ENT: normocephalic atraumatic Neck: supple Heart: RRR, normal peripheral pulses Respiratory: CTAB, normal chest expansion Gastrointestinal: soft, normal bowel sounds Neurological: cranial nerve grossly intact, no focal deficits Psychiatric: A&O x 3 Hosp A/P - Plan #Status post cardiopulmonary arrest #Acute hypoxic respiratory failure-s/p extubated #NSTEMI -status post left heart cath on 05/25/2020, nonischemic cardiomyopathy, secondary to Takotsubo syndrome #Pneumonia-covered PCR was negative #Acute on chronic systolic heart failure with EF of 20-25% #Septic/cardiogenic shock, present on admission #Hypertension #ONEIL, POA -Mentation back to baseline -Status post cath - negative for ischemic heart disease Takotsubo cardiomyopathy - on low dose BB, and ACEi IV. - Repeat echo in 3 months and follow with the explosive operator bomb Dr. Bonner Change Seroquel to as needed Plan for rehab placement versus home health. -Improving clinically -Possible re-cath early next week. her blood pressure is quite elevated this morning and also pulse in 80s. I increased the dose of Coreg as well as lisinopril and will titrate as her blood pressure allows to optimize the cardiac meds. - creatinine back to baseline at 1.03. Her BUN is also coming down Her BUN is quite elevated at almost 3200. She is on low-dose Lasix 20 mg IV daily.. If the repeat cath shows still poor EF, she would benefit with PO diuretics upon discharge. Will check her electrolytes panel including mag level tomorrow morning.
--- NOTE | 2020-05-27 14:04 | PRG ---
DATE OF SERVICE: 05/27/2020 SUBJECTIVE: The patient is doing well. No acute complaints. OBJECTIVE: VITAL SIGNS: Temperature 97.9, pulse 74, respirations 14, O2 sat 95% on 2 L, and blood pressure 132/72. HEENT: Clear. NECK: No adenopathy or JVD. CHEST: Clear. CARDIAC: S1 and S2. Regular. ABDOMEN: Soft. EXTREMITIES: No edema. LABS: No new labs were done today. ASSESSMENT: 1. Status post respiratory failure requiring mechanical ventilation. 2. Takotsubo syndrome. PLAN: Mainly rehabilitative issue at this point. No further pulmonary recommendations. We will sign off. Job ID: [id number]
[2020-05-27] MEDS: Lisinopril 10 MG TAB PO SCH (20:57)
[2020-05-28 05:11] LABS: Anion Gap 13 mmol/L (10-20); BUN (Urea Nitrogen) 27 mg/dL (9.8-20.1); Calc. Creatinine Clearance 53 mL/min (70-130); Calcium 8.6 mg/dL (7.8-10.44); Carbon Dioxide 35 mmol/L (23-31); Chloride 98 mmol/L (98-107); Estimated GFR-MDRD 63; Glucose 128 mg/dL (83-110); Potassium 3.8 mmol/L (3.5-5.1); Sodium 142 mmol/L (136-145)
[2020-05-28] MEDS: Acyclovir 200 mg Capsule PO SCH (08:59)
[2020-05-28] MEDS: Amlodipine 10 MG TAB PO SCH ×2 (08:59→21:23)
[2020-05-28] MEDS: Enoxaparin Sodium 30 MG/0.3 ML SYRINGE SC SCH (08:59)
[2020-05-28] MEDS: Carvedilol 6.25 MG TAB PO SCH ×2 (08:59→17:39)
[2020-05-28] MEDS: Furosemide 20 MG/2 ML VIAL SLOW IVP SCH (08:59)
[2020-05-28] MEDS: Famotidine/PF 20 mg/2ml Vial SLOW IVP SCH (08:59)
[2020-05-28] MEDS: Aspirin 81 mg Enteric Coated Tablet PO SCH (09:00)
[2020-05-28] MEDS: Loratadine 10 MG TAB PO SCH (09:00)
[2020-05-28] MEDS: Lisinopril 10 MG TAB PO SCH ×2 (09:00→21:23)
[2020-05-28] MEDS: Pregabalin 50 MG CAP PO SCH ×2 (09:00→21:22)
--- NOTE | 2020-05-28 10:17 | PRG ---
DATE OF SERVICE: 05/28/2020 SUBJECTIVE: Ms. Fernández states she just feels extremely weak. She has to have assistance to help her sit up in bed. She said she hears herself wheezing intermittently. No chest pain. OBJECTIVE: VITAL SIGNS: Her blood pressure is variable, earlier 138/85, now 171/99; pulse 80. LUNGS: Clear. There is no wheezing now. CARDIAC: Normal S1, normal S2. ABDOMEN: Soft and nontender. EXTREMITIES: Warm and dry. No clubbing or cyanosis. No edema. ASSESSMENT: 1. Status post episodes of Takotsubo's cardiomyopathy. 2. Congestive heart failure systolic, acute on chronic. 3. Hypertension. PLAN: 1. Would not go any higher on carvedilol due to her reported feeling of wheezing. 2. Continue ERON inhibitors. 3. Amlodipine, would not go higher at this time. 4. She is on daily Lasix. 5. Fit her for a LifeVest. 6. Probably at home Thursday. Hopefully, she is strong enough to go home. Otherwise, she may need some placement. Job ID: [id number]
--- NOTE | 2020-05-28 11:48 | PDOC.HOSPP ---
- Subjective Encounter Date: 05/28/20 Encounter Time: 10:40 Subjective: sHe is feeling good today. It appears that we are going to arrange for LifeVest. Physical therapy is following her. Discussed her discharge options. - Objective Vital Signs & Weight: Vital Signs (12 hours) Temp Pulse Resp BP Pulse Ox 05/28/20 09:02 95 05/28/20 08:55 98.0 F 80 14 171/99 H 95 05/28/20 05:41 97.9 F 69 16 138/85 95 05/28/20 01:06 98.3 F 71 18 131/72 95 Weight Admit Weight 149 lb 14.4 oz Weight 143 lb 3.2 oz Most Recent Monitor Data Heart Rate from ECG 69 NIBP 119/69 NIBP BP-Mean 85 Respiration from ECG 16 SpO2 100 I&O: 05/27/20 05/28/20 05/29/20 06:59 06:59 06:59 Intake Total 930 1500 Output Total 1375 2400 650 Balance -609 -227 -875 Result Diagrams: 05/26/20 06:12 05/28/20 04:11 Additional Labs: Accuchecks 05/28/20 05/27/20 05/27/20 05:48 17:31 11:32 POC Glucose 124 H 168 H 179 H Hospitalist ROS - Medication Medications: Active Medications Generic Name Dose Route Start Last Admin Trade Name Freq PRN Reason Stop Dose Admin Acyclovir 200 mg 05/23/20 09:00 05/28/20 08:59 Zovirax PO 05/30/20 09:01 200 mg QAM JAIR Administration Amlodipine Besylate 10 mg 05/27/20 09:00 05/28/20 08:59 Norvasc PO 10 mg DAILY JAIR Administration Aspirin 81 mg 05/25/20 09:00 05/28/20 09:00 Ecotrin PO 81 mg DAILY JAIR Administration Budesonide 9 mg 05/23/20 09:00 05/28/20 09:02 Entocort Ec PO 9 mg QAM JAIR Administration Carvedilol 12.5 mg 05/27/20 17:00 05/28/20 08:59 Coreg PO 12.5 mg BID-WM JAIR Administration Enoxaparin Sodium 30 mg 05/26/20 09:00 05/28/20 08:59 Lovenox SC 30 mg 0900 JAIR Administration Famotidine 20 mg 05/21/20 09:00 05/28/20 08:59 Pepcid SLOW IVP 20 mg DAILY JAIR Administration Furosemide 20 mg 05/26/20 09:00 05/28/20 08:59 Lasix SLOW IVP 20 mg DAILY JAIR Administration Hydralazine HCl 10 mg 05/26/20 16:15 05/26/20 16:57 Apresoline SLOW IVP 10 mg Q4H PRN Administration SBP> 150 Insulin Human Regular 0 units 05/21/20 09:06 05/27/20 11:57 Humulin R SC 2 unit .MODERATE SLIDING SC PRN Administration Moderate Correctional Scale Lisinopril 10 mg 05/27/20 21:00 05/28/20 09:00 Zestril PO 10 mg BID JAIR Administration Loratadine 10 mg 05/23/20 09:00 05/28/20 09:00 Claritin PO 10 mg DAILY JAIR Administration Pregabalin 100 mg 05/22/20 21:00 05/28/20 09:00 Lyrica PO 100 mg BID JAIR Administration Quetiapine Fumarate 25 mg 05/26/20 11:56 05/27/20 21:33 Seroquel PO 25 mg HSPRN PRN Administration Agitation - Exam General Appearance: NAD, awake alert Eye: PERRL ENT: normocephalic atraumatic Neck: supple Heart: RRR, normal peripheral pulses Respiratory: CTAB, normal chest expansion Gastrointestinal: soft, normal bowel sounds Neurological: normal sensation to touch, no focal deficits Psychiatric: A&O x 3 Hosp A/P - Plan #Status post cardiopulmonary arrest #Acute hypoxic respiratory failure-s/p extubated #NSTEMI -status post left heart cath on 05/25/2020, nonischemic cardiomyopathy, secondary to Takotsubo syndrome #Pneumonia-covered PCR was negative #Acute on chronic systolic heart failure with EF of 20-25% #Septic/cardiogenic shock, present on admission #Hypertension #ONEIL, POA -Mentation back to baseline -Status post cath - negative for ischemic heart disease Takotsubo cardiomyopathy - on low dose BB, and ACEi IV. - Repeat echo in 3 months and follow with the skein dyer Dr. Bonner Change Seroquel to as needed Plan for rehab placement versus home health. -Improving clinically -Possible re-cath early next week. her blood pressure is quite elevated this morning and also pulse in 80s. I increased the dose of Coreg as well as lisinopril and will titrate as her blood pressure allows to optimize the cardiac meds. - creatinine back to baseline at 1.03. Her BUN is also coming down Her BUN is quite elevated at almost 3200. She is on low-dose Lasix 20 mg IV daily.. If the repeat cath shows still poor EF, she would benefit with PO diuretics upon discharge. Will check her electrolytes panel including mag level tomorrow morning. 24th Her blood pressure is still high. We backed off on her Coreg dose. Given her blood pressure being high, I have increased the EORN inhibitor to maximal dose of 40 daily. She is would be able to go home with home health after LifeVest has been arranged. Plan for discharge after cardiology clearance.
[2020-05-28] MEDS ORDERED: Potassium Chloride 20 MEQ TAB PO SCH (12:00)
[2020-05-28] MEDS: Insulin Regular 300 UNITS/3 ML VIAL SC PRN ×2 (12:33→17:39)
[2020-05-28] MEDS: traZODone HCl 50 MG TAB PO SCH (21:22)
[2020-05-28] MEDS: Melatonin 3 MG TAB PO SCH (21:24)
[2020-05-29] MEDS: Pregabalin 50 MG CAP PO SCH ×2 (08:30→20:29)
[2020-05-29] MEDS: Loratadine 10 MG TAB PO SCH (08:31)
[2020-05-29] MEDS: Carvedilol 6.25 MG TAB PO SCH ×2 (08:31→17:41)
[2020-05-29] MEDS: Aspirin 81 mg Enteric Coated Tablet PO SCH (08:31)
[2020-05-29] MEDS: Furosemide 20 MG/2 ML VIAL SLOW IVP SCH (08:32)
[2020-05-29] MEDS: Amlodipine 10 MG TAB PO SCH ×2 (08:32→20:31)
[2020-05-29] MEDS: Acyclovir 200 mg Capsule PO SCH (08:32)
[2020-05-29] MEDS: Enoxaparin Sodium 30 MG/0.3 ML SYRINGE SC SCH (08:32)
[2020-05-29] MEDS: Famotidine/PF 20 mg/2ml Vial SLOW IVP SCH (08:32)
[2020-05-29] MEDS: Lisinopril 10 MG TAB PO SCH ×2 (08:32→20:31)
[2020-05-29] MEDS ORDERED: Spironolactone 25 MG TAB PO SCH (09:45)
--- NOTE | 2020-05-29 09:54 | PRG ---
DATE OF SERVICE: 05/29/2020 SUBJECTIVE: Ms. Fernández says she wants to go home. She says she has been up and walking around. She is still, however, on oxygen. OBJECTIVE: VITAL SIGNS: She is on 94% oxygen saturation on 2 L. LUNGS: Clear. CARDIAC: Normal S1. Normal S2. ABDOMEN: Soft and nontender. EXTREMITIES: There is no edema. ASSESSMENT: 1. Status post Takotsubo's cardiomyopathy. 2. Hypertension. 3. Congestive heart failure, systolic, acute on chronic. PLAN: 1. Recheck BNP. 2. Check chest x-ray. 3. Add spironolactone. 4. Not clear whether she will be ready to go home today or tomorrow, need to check her oxygen saturation on room air. Job ID: [id number]
--- NOTE | 2020-05-29 11:44 | RAD ---
Chest AP view INDICATION: CHF COMPARISON: Prior exam dated May 24, 2020 FINDINGS: Lungs: There are persistent bilateral pleural effusions. Left basilar airspace disease persists. Mil d atelectasis or edema remains within the right infrahilar region. Cardiac silhouette: Cardiomegaly is less prominent. Pulmonary vasculature: There is improvement in the pulmonary vascular congestion. Pleural spaces: Small bilateral pleural effusions remain, left greater than right. Upper abdomen: No abnormality seen. Osseous structures: No acute osseous abnormality. Additional findings: None. IMPRESSION: Some improvement in the cardiomegaly and pulmonary vascular congestion with persistent small bilatera l pleural effusions. There is persistent airspace disease within both lower lobes which may reflect sequela of atelectasis, aspiration or pneumonia. Recommend correlation with the clinical examination and radiographic follow-up.
--- NOTE | 2020-05-29 15:14 | PDOC.HOSPP ---
- Subjective Encounter Date: 05/29/20 Encounter Time: 10:40 Subjective: Patient seen this morning she is doing well. She is quite anxious to go home. LifeVest being arranged. Medications being titrated. - Objective Vital Signs & Weight: Vital Signs (12 hours) Temp Pulse Resp BP Pulse Ox 05/29/20 11:14 98.0 F 62 16 111/58 L 94 L 05/29/20 07:30 97.8 F 76 18 159/80 H 94 L 05/29/20 04:00 98.3 F 73 15 149/88 H 96 Weight Admit Weight 149 lb 14.4 oz Weight 141 lb 12.8 oz Most Recent Monitor Data Heart Rate from ECG 69 NIBP 119/69 NIBP BP-Mean 85 Respiration from ECG 16 SpO2 100 I&O: 05/28/20 05/29/20 05/30/20 06:59 06:59 06:59 Intake Total 1500 140 Output Total 2400 2500 Balance -900 -2360 Result Diagrams: 05/26/20 06:12 05/28/20 04:11 Additional Labs: Accuchecks 05/29/20 05/29/20 05/28/20 11:59 06:24 23:21 POC Glucose 171 H 130 H 104 05/28/20 17:33 POC Glucose 204 H Hospitalist ROS - Medication Medications: Active Medications Generic Name Dose Route Start Last Admin Trade Name Freq PRN Reason Stop Dose Admin Acetaminophen 650 mg 05/21/20 00:40 05/29/20 08:30 Tylenol PO 650 mg Q4H PRN Administration Headache/Fever/Mild Pain (1-3) Acyclovir 200 mg 05/23/20 09:00 05/29/20 08:32 Zovirax PO 05/30/20 09:01 200 mg QAM JAIR Administration Amlodipine Besylate 5 mg 05/28/20 21:00 05/29/20 08:32 Norvasc PO 5 mg BID JAIR Administration Aspirin 81 mg 05/25/20 09:00 05/29/20 08:31 Ecotrin PO 81 mg DAILY JAIR Administration Budesonide 9 mg 05/23/20 09:00 05/29/20 08:30 Entocort Ec PO 9 mg QAM JAIR Administration Carvedilol 6.25 mg 05/28/20 17:00 05/29/20 08:31 Coreg PO 6.25 mg BID-WM JAIR Administration Enoxaparin Sodium 30 mg 05/26/20 09:00 05/29/20 08:32 Lovenox SC 30 mg 0900 JAIR Administration Famotidine 20 mg 05/21/20 09:00 05/29/20 08:32 Pepcid SLOW IVP 20 mg DAILY JAIR Administration Furosemide 20 mg 05/26/20 09:00 05/29/20 08:32 Lasix SLOW IVP 20 mg DAILY JAIR Administration Hydralazine HCl 10 mg 05/26/20 16:15 05/26/20 16:57 Apresoline SLOW IVP 10 mg Q4H PRN Administration SBP> 150 Insulin Human Regular 0 units 05/21/20 09:06 05/28/20 17:39 Humulin R SC 4 unit .MODERATE SLIDING SC PRN Administration Moderate Correctional Scale Lisinopril 20 mg 05/28/20 21:00 05/29/20 08:32 Zestril PO 20 mg BID JAIR Administration Loratadine 10 mg 05/23/20 09:00 05/29/20 08:31 Claritin PO 10 mg DAILY JAIR Administration Melatonin 6 mg 05/28/20 21:00 05/28/20 21:24 Melatonin PO 6 mg HS JAIR Administration Pregabalin 100 mg 05/22/20 21:00 05/29/20 08:30 Lyrica PO 100 mg BID JAIR Administration Quetiapine Fumarate 25 mg 05/26/20 11:56 05/27/20 21:33 Seroquel PO 25 mg HSPRN PRN Administration Agitation Trazodone HCl 50 mg 05/28/20 21:00 05/28/20 21:22 Desyrel PO 50 mg HS JAIR Administration - Exam General Appearance: NAD, awake alert Eye: PERRL ENT: normocephalic atraumatic Neck: supple Heart: RRR Respiratory: CTAB, normal chest expansion Gastrointestinal: soft, normal bowel sounds Hosp A/P - Plan #Status post cardiopulmonary arrest #Acute hypoxic respiratory failure-s/p extubated #NSTEMI -status post left heart cath on 05/25/2020, nonischemic cardiomyopathy, secondary to Takotsubo syndrome #Pneumonia-covered PCR was negative #Acute on chronic systolic heart failure with EF of 20-25% #Septic/cardiogenic shock, present on admission #Hypertension #ONEIL, POA -Mentation back to baseline -Status post cath - negative for ischemic heart disease Takotsubo cardiomyopathy - on low dose BB, and ACEi IV. - Repeat echo in 3 months and follow with the ward maid Dr. Bonner Change Seroquel to as needed Plan for rehab placement versus home health. -Improving clinically -Possible re-cath early next week. her blood pressure is quite elevated this morning and also pulse in 80s. I increased the dose of Coreg as well as lisinopril and will titrate as her blood pressure allows to optimize the cardiac meds. - creatinine back to baseline at 1.03. Her BUN is also coming down Her BUN is quite elevated at almost 3200. She is on low-dose Lasix 20 mg IV daily.. If the repeat cath shows still poor EF, she would benefit with PO diuretics upon discharge. Will check her electrolytes panel including mag level tomorrow morning. Her blood pressure is still high. We backed off on her Coreg dose. Given her blood pressure being high, I have increased the ERON inhibitor to maximal dose of 40 daily. She is would be able to go home with home health after LifeVest has been arranged. Plan for discharge after cardiology clearance. Plan for being discharged today after LifeVest and medication adjustment.
[2020-05-29] MEDS ORDERED: Furosemide 40 MG/4 ML VIAL SLOW IVP SCH (17:00)
[2020-05-29] MEDS ORDERED: Potassium Chloride 20 MEQ TAB PO SCH (17:00)
[2020-05-29] MEDS: Insulin Regular 300 UNITS/3 ML VIAL SC PRN (17:41)
--- NOTE | 2020-05-29 18:41 | PQF ---
CLINICAL DOCUMENTATION CLARIFICATION FORM: Dear Dr. MARIS NEWSOME Date: 05-29-20 Please exercise your independent, professional judgment in responding to the clarification form. Clinical indicators are provided on the bottom of this form for your review. Please check appropriate box(es): [ x] Encephalopathy: Type: [ x] Acute [ ] Subacute [ ] Chronic Etiology: [ ] Hypertensive [ ] Metabolic [ ] Toxic [ ] Hypoxic [ ] Septic [ ] Other (please specify) [ ] Transient Alteration of Awareness [ ] Other diagnosis [ ] Unable to determine In addition, please specify: Present on Admission (POA): [ x ] Yes [ ] No [ ] Unable to determine For continuity of documentation, please document condition throughout progress notes and discharge summary. Thank You. To be completed by CDI/Coding staff for physician review: CLINICAL INDICATORS - SIGNS / SYMPTOMS / LABS / RESULTS AND LOCATION IN EMR: ER NOTES 05-20-20: MENTAL STATUS CHANGE, UNABLE TO AWAKEN HER, SHE TOOK A MUSCLE RELAXER FOR THE 1ST TIME, THEY HAD TROUBLE MAINTAINING HER SATS AND ELECTED TO INTUBATE HER ER DX: SEPTIC SHOCK, RESPIRATORY FAILURE, ROSC H&P: 05-20-20: SUDDEN CARDIAC ARREST, ACUTE RESPIRATORY FAILURE, HTN, PNEUMONIA PN DR. SCHULTZ 05-23-20: S/P EXTUBATED YESTERDAY, REMAINS CONFUSED TRYING TO GET OUT OF BED, REQUIRED FREQ RE-DIRECTIONS, [facility] WHEN MENTAL STATUS IMPROVED. CONSULT NOTE DR. MO 05-24-20: CONFUSION, DISORIENTATION, PROBABLY HYPOXIC EPISODE, SLOWLY IMPROVING. RISK FACTORS / RESULTS AND LOCATION IN EMR: ER DX: SEPTIC SHOCK, RESPIRATORY FAILURE, ROSC H&P: 05-20-20: SUDDEN CARDIAC ARREST, ACUTE RESPIRATORY FAILURE, HTN, PNEUMONIA TREATMENTS / RESULTS AND LOCATION IN EMR: ER NOTES 05-20-20: NS IVF, VERSED INJ, EPINEPHRINE IV H&P: 05-20-20: ON VANC, CEFEPIME CDS Signature: Arina Choe Phone #: [phone] Date/ Time: 05-29-20 This is a permanent part of the Medical Record [facility]
[2020-05-29] MEDS: Melatonin 3 MG TAB PO SCH (20:31)
[2020-05-29] MEDS: traZODone HCl 50 MG TAB PO SCH (20:31)
[2020-05-30 04:42] LABS: Anion Gap 16 mmol/L (10-20); BUN (Urea Nitrogen) 27 mg/dL (9.8-20.1); Calc. Creatinine Clearance 45 mL/min (70-130); Calcium 9.4 mg/dL (7.8-10.44); Carbon Dioxide 34 mmol/L (23-31); Chloride 95 mmol/L (98-107); Estimated GFR-MDRD 52; Glucose 125 mg/dL (83-110); Potassium 3.7 mmol/L (3.5-5.1); Sodium 141 mmol/L (136-145)
[2020-05-30] MEDS: Pregabalin 50 MG CAP PO SCH ×2 (08:23→20:16)
[2020-05-30] MEDS: Lisinopril 10 MG TAB PO SCH ×2 (08:23→20:15)
[2020-05-30] MEDS: Famotidine/PF 20 mg/2ml Vial SLOW IVP SCH (08:23)
[2020-05-30] MEDS: Carvedilol 6.25 MG TAB PO SCH ×2 (08:23→16:16)
[2020-05-30] MEDS: Enoxaparin Sodium 30 MG/0.3 ML SYRINGE SC SCH (08:23)
[2020-05-30] MEDS: Furosemide 20 MG/2 ML VIAL SLOW IVP SCH (08:23)
[2020-05-30] MEDS: Spironolactone 25 MG TAB PO SCH (08:24)
[2020-05-30] MEDS: Aspirin 81 mg Enteric Coated Tablet PO SCH (08:24)
[2020-05-30] MEDS: Amlodipine 10 MG TAB PO SCH (08:24)
[2020-05-30] MEDS: Loratadine 10 MG TAB PO SCH (08:25)
[2020-05-30] MEDS: Acyclovir 200 mg Capsule PO SCH (09:57)
--- NOTE | 2020-05-30 12:33 | PDOC.HOSPP ---
- Subjective Encounter Date: 05/30/20 Subjective: Patient is doing well. She is quite anxious to go home. She does have a mild pitting edema. BNP is quite elevated over 3000. She would benefit with another day of IV diuresis. Discussed with Dr. Bonner. She is satting 96% with a 2 L oxygen. We will wean her off. - Objective Vital Signs & Weight: Vital Signs (12 hours) Temp Pulse Resp BP Pulse Ox 05/30/20 11:38 64 17 120/63 93 L 05/30/20 08:20 97.6 F 75 18 139/74 96 05/30/20 04:00 97.5 F L 65 15 144/65 H 96 Weight Admit Weight 149 lb 14.4 oz Weight 135 lb 14.4 oz Most Recent Monitor Data Heart Rate from ECG 69 NIBP 119/69 NIBP BP-Mean 85 Respiration from ECG 16 SpO2 100 I&O: 05/29/20 05/30/20 05/31/20 06:59 06:59 06:59 Intake Total 140 1440 Output Total 2500 Balance -2360 1440 Result Diagrams: 05/26/20 06:12 05/30/20 03:43 Additional Labs: Accuchecks 05/30/20 05/29/20 05/29/20 05:48 23:49 17:46 POC Glucose 126 H 132 H 181 H Hospitalist ROS - Medication Medications: Active Medications Generic Name Dose Route Start Last Admin Trade Name Freq PRN Reason Stop Dose Admin Acetaminophen 650 mg 05/21/20 00:40 05/29/20 08:30 Tylenol PO 650 mg Q4H PRN Administration Headache/Fever/Mild Pain (1-3) Amlodipine Besylate 5 mg 05/28/20 21:00 05/30/20 08:24 Norvasc PO 5 mg BID JAIR Administration Aspirin 81 mg 05/25/20 09:00 05/30/20 08:24 Ecotrin PO 81 mg DAILY JAIR Administration Budesonide 9 mg 05/23/20 09:00 05/30/20 09:57 Entocort Ec PO 9 mg QAM JAIR Administration Carvedilol 6.25 mg 05/28/20 17:00 05/30/20 08:23 Coreg PO 6.25 mg BID-WM JAIR Administration Enoxaparin Sodium 30 mg 05/26/20 09:00 05/30/20 08:23 Lovenox SC 30 mg 0900 JAIR Administration Famotidine 20 mg 05/21/20 09:00 05/30/20 08:23 Pepcid SLOW IVP 20 mg DAILY JAIR Administration Hydralazine HCl 10 mg 05/26/20 16:15 05/26/20 16:57 Apresoline SLOW IVP 10 mg Q4H PRN Administration SBP> 150 Insulin Human Regular 0 units 05/21/20 09:06 05/29/20 17:41 Humulin R SC 2 unit .MODERATE SLIDING SC PRN Administration Moderate Correctional Scale Lisinopril 20 mg 05/28/20 21:00 05/30/20 08:23 Zestril PO 20 mg BID JAIR Administration Loratadine 10 mg 05/23/20 09:00 05/30/20 08:25 Claritin PO 10 mg DAILY JAIR Administration Melatonin 6 mg 05/28/20 21:00 05/29/20 20:31 Melatonin PO 6 mg HS JAIR Administration Pregabalin 100 mg 05/22/20 21:00 05/30/20 08:23 Lyrica PO 100 mg BID JAIR Administration Quetiapine Fumarate 25 mg 05/26/20 11:56 05/27/20 21:33 Seroquel PO 25 mg HSPRN PRN Administration Agitation Sodium Chloride 10 ml 05/29/20 21:00 05/30/20 09:58 Flush - Normal Saline IVF 10 ml Q12HR JAIR Administration Spironolactone 25 mg 05/30/20 08:00 05/30/20 08:24 Aldactone PO 25 mg QAM-WM JAIR Administration Trazodone HCl 50 mg 05/28/20 21:00 05/29/20 20:31 Desyrel PO 50 mg HS JAIR Administration - Exam General Appearance: NAD, awake alert Eye: PERRL ENT: normocephalic atraumatic Neck: supple Heart: RRR Respiratory: CTAB, normal chest expansion Gastrointestinal: soft, normal bowel sounds Extremities: 1+ LE edema Psychiatric: A&O x 3 Hosp A/P - Plan #Status post cardiopulmonary arrest #Acute hypoxic respiratory failure-s/p extubated #NSTEMI -status post left heart cath on 05/25/2020, nonischemic cardiomyopathy, secondary to Takotsubo syndrome #Pneumonia-covered PCR was negative #Acute on chronic systolic heart failure with EF of 20-25% #Septic/cardiogenic shock, present on admission #Hypertension #ONEIL, POA -Mentation back to baseline -Status post cath - negative for ischemic heart disease Takotsubo cardiomyopathy - on low dose BB, and ACEi IV. - Repeat echo in 3 months and follow with the shrimp cleaner Dr. Bonner Change Seroquel to as needed Plan for rehab placement versus home health. -Improving clinically -Possible re-cath early next week. her blood pressure is quite elevated this morning and also pulse in 80s. I increased the dose of Coreg as well as lisinopril and will titrate as her blood pressure allows to optimize the cardiac meds. - creatinine back to baseline at 1.03. Her BUN is also coming down Her BUN is quite elevated at almost 3200. She is on low-dose Lasix 20 mg IV daily.. If the repeat cath shows still poor EF, she would benefit with PO diuretics upon discharge. Will check her electrolytes panel including mag level tomorrow morning. Her blood pressure is still high. We backed off on her Coreg dose. Given her blood pressure being high, I have increased the ERON inhibitor to maximal dose of 40 daily. She is would be able to go home with home health after LifeVest has been arranged. Plan for discharge after cardiology clearance. Plan for being discharged today after LifeVest and medication adjustment. IV diuretics dose increased we will see how she does in the next 24 hours wean her off oxygen a little bit more diuresis would help her prior to discharging her. Will plan to do send her home with the Lasix 40 mg daily unless shrimp cleaner feel otherwise. Follow a.m. BNP and creatinine level for monitoring purposes.
[2020-05-30] MEDS: Insulin Regular 300 UNITS/3 ML VIAL SC PRN (13:05)
--- NOTE | 2020-05-30 15:53 | PRG ---
DATE OF SERVICE: 05/30/2020 SUBJECTIVE: Ms. Fernández looks very, very much better today. She is breathing easier now. She has normal oxygen saturation on room air now. OBJECTIVE: VITAL SIGNS: Her blood pressure is 120/60, pulse 64 and regular. LUNGS: Clear now. CARDIAC: Normal S1 and S2. ABDOMEN: Soft and nontender. EXTREMITIES: There is no edema. ASSESSMENT: 1. Takotsubo's cardiomyopathy, improving. 2. Hypertension, improved with diuresis. 3. heart failure, under better control. PLAN: 1. Continue carvedilol at a reduced dose. 2. Continue lisinopril at full dose. 3. She is on higher dose of the furosemide. 4. Going to reduce the amlodipine, the blood pressure improved. 5. She is on spironolactone, try to go home tomorrow. Job ID: [id number]
[2020-05-30] MEDS: Melatonin 3 MG TAB PO SCH (20:16)
[2020-05-30] MEDS: traZODone HCl 50 MG TAB PO SCH (20:16)
[2020-05-30] MEDS ORDERED: Furosemide 40 MG/4 ML VIAL SLOW IVP SCH (21:00)
[2020-05-30] MEDS ORDERED: Furosemide 20 MG/2 ML VIAL SLOW IVP SCH (21:00)
[2020-05-31 04:56] LABS: Anion Gap 15 mmol/L (10-20); BUN (Urea Nitrogen) 30 mg/dL (9.8-20.1); Calc. Creatinine Clearance 38 mL/min (70-130); Calcium 9.2 mg/dL (7.8-10.44); Carbon Dioxide 35 mmol/L (23-31); Chloride 95 mmol/L (98-107); Estimated GFR-MDRD 45; Glucose 117 mg/dL (83-110); Potassium 3.5 mmol/L (3.5-5.1); Sodium 141 mmol/L (136-145)
[2020-05-31] MEDS ORDERED: Potassium Chloride 20 MEQ TAB PO SCH (07:45)
[2020-05-31] MEDS: Carvedilol 6.25 MG TAB PO SCH (08:25)
[2020-05-31] MEDS: Spironolactone 25 MG TAB PO SCH (08:26)
[2020-05-31] MEDS: Pregabalin 50 MG CAP PO SCH (08:27)
[2020-05-31] MEDS: Aspirin 81 mg Enteric Coated Tablet PO SCH (08:28)
[2020-05-31] MEDS: Lisinopril 10 MG TAB PO SCH (08:28)
[2020-05-31] MEDS: Loratadine 10 MG TAB PO SCH (08:29)
[2020-05-31] MEDS: Enoxaparin Sodium 30 MG/0.3 ML SYRINGE SC SCH (08:29)
[2020-05-31] MEDS: Famotidine/PF 20 mg/2ml Vial SLOW IVP SCH (08:32)
[2020-05-31] MEDS ORDERED: Amlodipine 5 MG TAB PO SCH (09:00)
[2020-05-31] MEDS ORDERED: Atorvastatin Calcium 10 MG TAB PO SCH (09:30)
[2020-05-31 11:52] LABS: Cardiac Risk 3.6 (Less than 4.5)
[2020-05-31] MEDS: Insulin Regular 300 UNITS/3 ML VIAL SC PRN (11:57)
[2020-05-31 13:19] VITALS: BP 109/57; TEMP 97.9
[2020-05-31 13:44] VITALS: BMI 25.9
--- NOTE | 2020-06-01 06:13 | DIS ---
DATE OF ADMISSION: 05/20/2020 DATE OF DISCHARGE: 05/31/2020 DISCHARGE DIAGNOSES: 1. Status post cardiopulmonary arrest. 2. Acute hypoxic respiratory failure, requiring intubation. 3. [id number] myocardial infarction, TYPE II status post left heart catheterization on May 25 showing nonischemic cardiomyopathy secondary to takotsubo cardiomyopathy. 4. Pneumonia, COVID negative. 5. Acute on chronic systolic heart failure secondary to takotsubo cardiomyopathy and ejection fraction of 25%. 6. Cardiogenic shock/septic present on admission. 7. Acute kidney injury present on admission. 8. Hypertension. 9. Hypoxia, chronic oxygen-dependent respiratory failure. She is on home oxygen. DISCHARGE MEDICATIONS: 1. Aspirin 81 mg daily. 2. Lipitor 10 mg at bedtime. 3. Coreg 6.25 mg twice a day. 4. Lasix 40 mg daily. 5. Lisinopril 20 mg twice a day. 6. Spironolactone 25 mg daily. 7. Trazodone 100 mg at bedtime as needed. 8. Acyclovir 200 mg daily. 9. Trintellix 20 mg daily. 10. Pregabalin 100 mg twice a day. 11. Cetirizine 10 mg daily. 12. Budesonide 9 mg daily. PHYSICAL EXAMINATION: VITAL SIGNS: On the day of discharge, temperature 99, pulse 68, blood pressure 130/87. She is satting 93% with 2 L oxygen and she is on home oxygen. GENERAL: She is doing well. She has no respiratory distress or any acute complaints. Discussed with RN. The patient is agreeable for discharge to go home today. Her BNP is significantly reduced from 3200 to 1157 for 2 days of IV diuresis. Her creatinine is mildly high around 1.16. CARDIOVASCULAR: Regular rate and rhythm without murmurs, rubs, or gallops. LUNGS: Clear to auscultation bilaterally without wheezing. She has slight trace pitting edema on her ankle area. CONSULTS: 1. Cardiology. 2. Critical Care Medicine. HOSPITAL COURSE: This is a 80-year-old female admitted with cardiopulmonary arrest and acute hypoxic respiratory failure. She had a cath and echo which also showed depressed EF of 25%. It appears stress related takotsubo cardiomyopathy, so was started on a low-dose beta [place] and lisinopril. We are going to repeat the echo in three months. She is able to ambulate with oxygen by nasal cannula. She did not have any further respiratory distress. She was eventually moved from the ICU to telemetry. Followed closely. Because of her poor EF, we diuresed her last couple of days and that seems to be helping her. She is tolerating her medications including spironolactone. Her blood pressure is 130/87 on the day of discharge. She is hemodynamically stable and ambulating without any respiratory distress, and received maximum benefit during this hospitalization and will be discharged home today. DISCHARGE INSTRUCTIONS: 1. Activity as tolerated. 2. Healthy heart diet. 3. Follow up with PCP in 1 week. Follow up with Dr. Bonner in 1 to 2 weeks. 4. Request for primary care physician to repeat echo in three months. Discharge time took over 35 minutes. Job ID: [id number] ANNE
[2020-06-01] MEDS ORDERED: Furosemide 40 MG TAB PO SCH (09:00)
== END 2020-05-31 14:55 | disposition home health service (06) | DRG 871 ==
LOC: ERS 23:26 → CCU 23:32 → 2NO 05-26 11:21
PROVIDERS: ADMIT Internal Medicine; ATTEND Internal Medicine
PROC: 5A1945Z Respiratory Ventilation, 24-96 Consecutive Hours (ICD-10-PCS; principal; 2020-05-20)
PROC: 3E033XZ Introduction of Vasopressor into Peripheral Vein, Percutaneous Approach (ICD-10-PCS; 2020-05-21)
PROC: 5A09357 Assistance with Respiratory Ventilation, Less than 24 Consecutive Hours, Continuous Positive Airway Pressure (ICD-10-PCS; 2020-05-23)
PROC: 4A023N7 Measurement of Cardiac Sampling and Pressure, Left Heart, Percutaneous Approach (ICD-10-PCS; 2020-05-25)
PROC: B2111ZZ Fluoroscopy of Multiple Coronary Arteries using Low Osmolar Contrast (ICD-10-PCS; 2020-05-25)
DX: A41.9 Sepsis, unspecified organism (principal); J96.01 Acute respiratory failure with hypoxia; I46.8 Cardiac arrest due to other underlying condition; I21.A1 Myocardial infarction type 2; J18.9 Pneumonia, unspecified organism; I50.23 Acute on chronic systolic (congestive) heart failure; R65.21 Severe sepsis with septic shock; I51.81 Takotsubo syndrome; N17.9 Acute kidney failure, unspecified; I45.2 Bifascicular block; G93.40 Encephalopathy, unspecified; Z20.828 Contact with and (suspected) exposure to other viral communicable diseases; F32.9 Major depressive disorder, single episode, unspecified; M19.90 Unspecified osteoarthritis, unspecified site; G89.29 Other chronic pain; M54.9 Dorsalgia, unspecified; E78.5 Hyperlipidemia, unspecified; I10 Essential (primary) hypertension; Z96.659 Presence of unspecified artificial knee joint; E87.6 Hypokalemia; Z99.81 Dependence on supplemental oxygen; Z98.1 Arthrodesis status; Z88.5 Allergy status to narcotic agent; Z88.8 Allergy status to other drugs, medicaments and biological substances; Z88.1 Allergy status to other antibiotic agents
CPT/HCPCS: 36415; 36416; 71045; 76942; 80048; 80053; 80061; 80202; 81003; 81015; 82553; 82805; 83605; 83735; 83880; 84145; 84484; 85007; 85025; 85027; 87635; 93005; 93010; 93306; 93458; 94002; 94003; 94660; 96365; 96366; 96368; 96375; 97139; J0171; J0360; J0692; J1630; J1644; J1650; J1815; J1940; J2060; J2250; J2704; J3370; J3475; J3480; J3490; J7030; J7050; J7070; Q9967; S0028; U0003

== ENCOUNTER 2020-08-03 17:00 | Outpatient (CLI) | payer MEDICARE | END 2020-08-03 17:01 | disposition home or self-care (01) | LOC: SLEEPLAB 17:00 | PROVIDERS: ATTEND Family Medicine | DX: G47.33 Obstructive sleep apnea (adult) (pediatric) (principal); I10 Essential (primary) hypertension; I25.2 Old myocardial infarction; G47.00 Insomnia, unspecified; R06.83 Snoring | CPT/HCPCS: 95806 ==

== ENCOUNTER 2020-11-27 12:31 | Outpatient (CLI) | payer MEDICARE ==
--- NOTE | 2020-11-27 13:02 | RAD ---
EXAM: Single anterior view of the thoracic and lumbosacral spine (scoliosis series) HISTORY: Scoliosis COMPARISON: None FINDINGS: Anterior views of the thoracic and lumbar spine shows normal height and alignment of the ve rtebral bodies without fracture or subluxation. No significant scoliosis is seen. Postsurgical changes are seen in the lumbar spine. Moderate degenerative changes are seen in the thoracic and lumb ar spine. IMPRESSION: Degenerative and postsurgical changes of the thoracic and lumbosacral spine without evide nce of significant scoliotic curvature.
--- NOTE | 2020-11-27 13:41 | RAD ---
PA AND LATERAL CHEST: 11/27/20 HISTORY: Fall with bilateral rib pain. Heart size is enlarged. The aorta is tortuous. The lungs are clear of infiltrates. There are no rib f ractures identified. IMPRESSION: Cardiomegaly. No pneumothorax or any definite rib fractures. POS: OFF
== END 2020-11-27 12:32 | disposition home or self-care (01) ==
LOC: BICRAD 12:31
PROVIDERS: ATTEND Chiropractor
DX: M41.9 Scoliosis, unspecified (principal); M54.6 Pain in thoracic spine; R07.81 Pleurodynia; I51.7 Cardiomegaly; M47.814 Spondylosis without myelopathy or radiculopathy, thoracic region; M47.817 Spondylosis without myelopathy or radiculopathy, lumbosacral region; Z98.890 Other specified postprocedural states
CPT/HCPCS: 71046; 72081

== ENCOUNTER 2022-04-21 10:30 | Inpatient (IN) | payer MEDICARE ==
[2022-04-22 12:55] VITALS: BMI 26.4
[2022-04-24] MEDS ORDERED: Phenylephrine 10 MG/ML VIAL ONE (06:14)
[2022-04-24] MEDS ORDERED: fentaNYL Citrate/PF 100 MCG/2 ML SYRINGE ONE (06:14)
[2022-04-24] MEDS ORDERED: Sodium Chloride 0.9% 100 ML ONE ×2 (06:22→06:58)
[2022-04-24] MEDS ORDERED: Tranexamic Acid 1,000 MG/10 ML VIAL ONE (06:22)
[2022-04-24] MEDS ORDERED: Vancomycin 1 GM/200 ML BAG ONE ×2 (06:22→07:20)
[2022-04-24] MEDS ORDERED: Midazolam HCl 2 mg/2 ml Vial ONE (06:46)
[2022-04-24] MEDS ORDERED: CEFAZOLIN 2 GM VIAL ONE (06:58)
[2022-04-24] MEDS ORDERED: Ondansetron PF 4 MG/2 ML Vial IVP PRN ×2 (07:04→09:15)
[2022-04-24] MEDS ORDERED: Acetaminophen 325 MG TAB PO PRN (07:04)
[2022-04-24] MEDS ORDERED: Ondansetron ODT 4 MG TAB PO PRN (07:04)
[2022-04-24] MEDS ORDERED: Milk Of Magnesia 30 ML UDCUP PO PRN (07:04)
[2022-04-24] MEDS ORDERED: Bisacodyl 10 MG SUPP PR PRN (07:04)
[2022-04-24] MEDS ORDERED: diphenhydrAMINE 50 MG CAP PO PRN (07:04)
[2022-04-24] MEDS ORDERED: ceFAZolin 2 GM/Dextrose 50 ML 2 GM in Premix Bag 1 BAG IVPB SCH (07:15)
[2022-04-24] MEDS ORDERED: HYDROmorphone 2 MG/ML VIAL ONE (07:17)
[2022-04-24] MEDS ORDERED: SUGAMMADEX SODIUM 200 MG/2 ML VIAL ONE (09:08)
[2022-04-24] MEDS ORDERED: HYDROcodone/Acetaminophen 5/325 mg Tablet PO PRN ×2 (09:15)
[2022-04-24] MEDS ORDERED: Ropivacaine 0.2% 550 ML 550 ML NERVE BLCK SCH (09:15)
[2022-04-24] MEDS ORDERED: Ketorolac Tromethamine 30 MG/ML VIAL IVP PRN (09:15)
[2022-04-24] MEDS ORDERED: traMADol HCl 50 MG TAB PO PRN ×2 (09:15)
[2022-04-24] MEDS ORDERED: Zolpidem Tartrate 5 MG TAB PO PRN (09:15)
[2022-04-24] MEDS ORDERED: Promethazine HCl 25 MG/ML VIAL IM PRN (09:15)
[2022-04-24] MEDS ORDERED: Glycopyrrolate 0.2 MG/ML 5 ML SYRINGE ONE (10:00)
[2022-04-24] MEDS ORDERED: Dexamethasone 20 MG/5 ML VIAL ONE (10:00)
[2022-04-24] MEDS ORDERED: ePHEDrine Sulfate 50 MG/10 ML VIAL ONE (10:00)
[2022-04-24] MEDS ORDERED: Ondansetron PF 4 MG/2 ML Vial ONE (10:00)
[2022-04-24] MEDS ORDERED: Lidocaine 1% PF 5 ML VIAL ONE (10:00)
[2022-04-24] MEDS ORDERED: Bupivacaine HCl 0.5%/Epinephrine 1:200,000/PF 30 ml Vial ONE (10:00)
[2022-04-24] MEDS ORDERED: Esmolol 100 MG/10 ML VIAL ONE (10:00)
[2022-04-24] MEDS ORDERED: PROPOFOL 200 MG/20 ML VIAL ONE (10:00)
[2022-04-24] MEDS ORDERED: Rocuronium Bromide 10 MG/ML (10ML VIAL) ONE (10:00)
[2022-04-24] MEDS: Famotidine 20 MG TAB PO SCH ×2 (15:16→20:13)
[2022-04-24] MEDS: CEFAZOLIN 2 GM in Sodium Chloride 0.9% 100 ML IVPB SCH ×2 (15:52→23:40)
[2022-04-24] MEDS: Sodium Chloride 0.9% 1,000 ML IV SCH ×2 (15:52→23:47)
[2022-04-24] MEDS ORDERED: Vancomycin 1 GM in Premix Bag 1 BAG IVPB SCH (19:00)
[2022-04-25 08:39] VITALS: TEMP 98.5
[2022-04-25] MEDS: Famotidine 20 MG TAB PO SCH (09:04)
[2022-04-25 11:51] VITALS: BP 167/92
== END 2022-04-25 15:37 | disposition home or self-care (01) | DRG 483 ==
LOC: SURG A 04-24 05:24
PROVIDERS: ADMIT Orthopaedic Surgery; ATTEND Orthopaedic Surgery
PROC: 0RRJ00Z Replacement of Right Shoulder Joint with Reverse Ball and Socket Synthetic Substitute, Open Approach (ICD-10-PCS; principal; 2022-04-24)
PROC: 3E0T3BZ Introduction of Anesthetic Agent into Peripheral Nerves and Plexi, Percutaneous Approach (ICD-10-PCS; 2022-04-24)
DX: M19.011 Primary osteoarthritis, right shoulder (principal); Z88.6 Allergy status to analgesic agent; Z88.1 Allergy status to other antibiotic agents; Z88.8 Allergy status to other drugs, medicaments and biological substances
CPT/HCPCS: A4306; C1713; C1776; J0690; J1100; J1170; J2250; J2370; J2405; J2550; J2704; J2710; J2795; J3370; J3490; J7050; Q0162

== ENCOUNTER 2022-04-21 10:36 | Outpatient (CLI) | payer MEDICARE ==
[2022-04-21 12:04] LABS: #Eosinphils 0.1 10x3/uL (0.0-0.5); #Monocytes 0.5 10x3/uL (0.0-1.1); #Neutrophils 3.4 10x3/uL (1.5-8.4); %Basophils 0.5 % (0.0-2.0); %Eosinophils 1.6 % (0.0-6.0); %Lymphocytes 33.3 % (18.0-47.0); %Monocytes 8.3 % (0.0-10.0); %Neutrophils 55.8 % (40.0-75.0); Hemoglobin 12.5 g/dL (12.0-15.5); Mean Corpuscular HGB CONC 33.3 g/dL (32.0-36.0); Mean Corpuscular Hemoglobin 29.8 pg (27.0-33.0); Mean Corpuscular Volume 89.3 fl (81.6-98.3); Mean Platelet Volume 9.9 fl (7.4-10.4); Platelet Count 248 10x3/uL (150-450); White Blood Cell (WBC) Count 6.2 10x3/uL (3.5-10.5)
[2022-04-21 12:26] LABS: Prothrombin Time 10.7 sec (9.5-12.1)
[2022-04-21 12:27] LABS: Anion Gap 15 mmol/L (10-20); BUN (Urea Nitrogen) 14 mg/dL (9.8-20.1); Calc. Creatinine Clearance 0 mL/min (70-130); Calcium 9.2 mg/dL (7.8-10.44); Carbon Dioxide 29 mmol/L (23-31); Chloride 95 mmol/L (98-107); Estimated GFR 50; Glucose 85 mg/dL (83-110); Potassium 4.7 mmol/L (3.5-5.1); Sodium 134 mmol/L (136-145)
== END 2022-04-21 10:37 | disposition home or self-care (01) ==
LOC: LABBT 10:36
PROVIDERS: ATTEND Orthopaedic Surgery
DX: Z01.812 Encounter for preprocedural laboratory examination (principal); Z20.822 Contact with and (suspected) exposure to COVID-19
CPT/HCPCS: 80048; 85025; 85610; 87811

== ENCOUNTER 2022-04-27 15:24 | Inpatient (IN) | payer MEDICARE ==
[~2022-04-27 15:24] MED LIST: Iopamidol-370 76% 500 ML 1 ML ONE
[2022-04-27 15:57] LABS: #Lymphocytes 1.1 thou/uL (1.20-3.40); #Monocytes 0.7 thou/uL (0.11-0.59); #Neutrophils 8.1 thou/uL (1.40-6.50); %Eosinophils 0.2 % (0.0-10.0); %Lymphocytes 10.7 % (21.0-51.0); %Monocytes 6.8 % (0.0-10.0); %Neutrophils 82.2 % (42.0-75.0); Hemoglobin 12.7 g/dL (12.0-16.0); Mean Corpuscular HGB CONC 34.3 g/dL (32.0-36.0); Mean Corpuscular Hemoglobin 31.4 pg (27.0-31.0); Mean Corpuscular Volume 91.7 fL (78.0-98.0); Mean Platelet Volume 7.9 fL (7.4-10.4); Platelet Count 222 thou/uL (130-400); RBC Distribution Width 12.9 % (11.5-14.5); Red Blood Cell (RBC) Count 4.02 mill/uL (4.20-5.40); White Blood Cell (WBC) Count 9.8 thou/uL (4.8-10.8)
[2022-04-27 16:18] LABS: ALT (SGPT) 18 U/L (8-55); AST (SGOT) 44 U/L (5-34); Alkaline Phosphatase 61 U/L (40-110); Anion Gap 18 mmol/L (10-20); BUN (Urea Nitrogen) 12 mg/dL (9.8-20.1); Calc. Creatinine Clearance 0 mL/min (70-130); Calcium 8.8 mg/dL (7.8-10.44); Carbon Dioxide 23 mmol/L (23-31); Chloride 93 mmol/L (98-107); Estimated GFR 74; Globulin 3.1 g/dL (2.4-3.5); Glucose 158 mg/dL (83-110); Potassium 3.3 mmol/L (3.5-5.1); Protein, Total 7.1 g/dL (5.8-8.1); Sodium 131 mmol/L (136-145)
[2022-04-27] MEDS ORDERED: Ondansetron PF 4 MG/2 ML Vial ONE (16:21)
[2022-04-27 17:21] LABS: CKMB 7.5 ng/mL (0-6.6)
[2022-04-27] MEDS ORDERED: cefTRIAXone\\ROCEPHIN 2 GM VIAL ONE (20:26)
[2022-04-27] MEDS ORDERED: Azithromycin 500 MG VIAL ONE (20:26)
[2022-04-27] MEDS ORDERED: Aspirin Chewable 81 MG TAB ONE (20:26)
[2022-04-27 20:32] LABS: Bacteria/HPF None Seen HPF (None Seen); Bilirubin Negative (Negative); Blood, Urine 1+ (Negative); Clarity Clear (Clear); Glucose, Urine (Dipstick) 100 mg/dL (Negative); Ketone, Urine 10 mg/dL (Negative); Leukocyte Negative Leu/uL (Negative); Nitrite Negative (Negative); Protein, Urine (Dipstick) 100 mg/dL (Neg-Trace); RBC/HPF 0-3 HPF (0-3); Specific Gravity, Urine 1.033 (1.002-1.036); Squamous Epithelial None Seen HPF (0-3); Urobilinogen Normal mg/dL (Less than 2); WBC/HPF 0-3 HPF (0-3)
[2022-04-27] MEDS ORDERED: Nitroglycerin 2% Ointment 1 INCH/1 GM Packet ONE (20:41)
[2022-04-27 21:40] LABS: Troponin I 1.271 ng/mL (< 0.028)
[2022-04-27 23:32] LABS: SARS-CoV-2 NAA Rapid Test Not Detected (NotDetected)
[2022-04-28 00:40] LABS: Critical Call Chem Troponin I RESULT DECREASING; Troponin I 1.052 ng/mL (< 0.028)
[2022-04-28] MEDS ORDERED: Potassium Chloride 20 MEQ TAB PO SCH (01:30)
[2022-04-28 02:03] LABS: Magnesium 1.3 mg/dL (1.6-2.6)
[2022-04-28 02:09] LABS: Amphetamine Not Detected (NotDetected); Barbiturates Screen Not Detected (NotDetected); Benzodiazepine Screen Not Detected (NotDetected); Cocaine Metabolite Screen Not Detected (NotDetected); Methadone Not Detected (NotDetected); Methamphetamine Not Detected (NotDetected); Opiate Screen Not Detected (NotDetected); Oxycodone Screen Not Detected (NotDetected); Phencyclidine (PCP) Not Detected (NotDetected); THC/Cannabinoid Screen Not Detected (NotDetected); Tricyclic Screen Not Detected (NotDetected)
[2022-04-28] MEDS ORDERED: Piperacillin/Tazobactam 3.375 GM in Sodium Chloride 0.9% 100 ML IVPB SCH ×2 (02:30→06:00)
[2022-04-28] MEDS ORDERED: Magnesium 2 GM/50 ML(in water) 2 GM in Premix Bag 1 BAG IVPB SCH (02:30)
[2022-04-28] MEDS ORDERED: Magnesium 2 GM/50 ML BAG (IN WATER) ONE (02:38)
[2022-04-28] MEDS ORDERED: Potassium Chloride 20 MEQ TAB ONE (02:38)
[2022-04-28] MEDS ORDERED: Piperacillin/Tazobactam 3.375 GM VIAL ONE ×3 (03:54→07:10)
[2022-04-28 06:37] LABS: #Eosinphils 0.1 thou/uL (0.0-0.7); #Lymphocytes 1.3 thou/uL (1.20-3.40); #Monocytes 0.9 thou/uL (0.11-0.59); #Neutrophils 7.7 thou/uL (1.40-6.50); %Basophils 0.1 % (0.0-1.0); %Eosinophils 0.8 % (0.0-10.0); %Lymphocytes 12.6 % (21.0-51.0); %Monocytes 8.9 % (0.0-10.0); %Neutrophils 77.8 % (42.0-75.0); Hemoglobin 12.6 g/dL (12.0-16.0); Mean Corpuscular HGB CONC 34.1 g/dL (32.0-36.0); Mean Corpuscular Hemoglobin 31.2 pg (27.0-31.0); Mean Corpuscular Volume 91.5 fL (78.0-98.0); Mean Platelet Volume 8.4 fL (7.4-10.4); Platelet Count 214 thou/uL (130-400); RBC Distribution Width 12.7 % (11.5-14.5); Red Blood Cell (RBC) Count 4.05 mill/uL (4.20-5.40); White Blood Cell (WBC) Count 9.9 thou/uL (4.8-10.8)
[2022-04-28 06:58] LABS: Anion Gap 18 mmol/L (10-20); BUN (Urea Nitrogen) 12 mg/dL (9.8-20.1); Calc. Creatinine Clearance 0 mL/min (70-130); Calcium 8.6 mg/dL (7.8-10.44); Carbon Dioxide 23 mmol/L (23-31); Chloride 94 mmol/L (98-107); Estimated GFR 77; Glucose 124 mg/dL (83-110); Potassium 3.8 mmol/L (3.5-5.1); Sodium 131 mmol/L (136-145)
[2022-04-28 08:01] LABS: Critical Call Chem Troponin I RESULT DECREASING; Troponin I 0.874 ng/mL (< 0.028)
[2022-04-28] MEDS ORDERED: Enoxaparin Sodium 40 MG/0.4 ML SYRINGE SC SCH (09:00)
[2022-04-28] MEDS ORDERED: VORTIOXETINE HYDROBROMIDE PO SCH (09:00)
[2022-04-28] MEDS ORDERED: Flaxseed/Omega3,6,9/Fatty Acid [Flax Seed Oil 1,300 Mg Softgel] PO SCH (09:00)
[2022-04-28] MEDS ORDERED: Enoxaparin Sodium 40 MG/0.4 ML SYRINGE ONE (09:21)
[2022-04-28] MEDS ORDERED: Aspirin Chewable 81 MG TAB ONE (09:21)
[2022-04-28] MEDS ORDERED: Ondansetron PF 4 MG/2 ML Vial ONE (09:21)
[2022-04-28] MEDS: Aspirin 81 mg Enteric Coated Tablet PO SCH (09:40)
[2022-04-28] MEDS: Ondansetron PF 4 MG/2 ML Vial IVP PRN (09:41)
[2022-04-28] MEDS: Lisinopril 10 MG TAB PO SCH (12:23)
[2022-04-28] MEDS ORDERED: Spironolactone 25 MG TAB PO SCH (12:30)
[2022-04-28 12:57] VITALS: BMI 27.6
[2022-04-28] MEDS: hydrALAZINE 20 MG/ML VIAL SLOW IVP PRN (14:39)
[2022-04-28] MEDS: Atorvastatin Calcium 10 MG TAB PO SCH (14:42)
[2022-04-28] MEDS ORDERED: Lisinopril 2.5 MG TAB PO SCH (21:00)
[2022-04-29] MEDS: Ondansetron PF 4 MG/2 ML Vial IVP PRN (03:27)
[2022-04-29] MEDS: hydrALAZINE 20 MG/ML VIAL SLOW IVP PRN ×2 (03:27→17:51)
[2022-04-29 04:51] LABS: #Eosinphils 0.1 thou/uL (0.0-0.7); #Lymphocytes 1.6 thou/uL (1.20-3.40); #Monocytes 1.1 thou/uL (0.11-0.59); #Neutrophils 8.7 thou/uL (1.40-6.50); %Basophils 0.2 % (0.0-1.0); %Eosinophils 0.7 % (0.0-10.0); %Lymphocytes 14.3 % (21.0-51.0); %Monocytes 9.3 % (0.0-10.0); %Neutrophils 75.5 % (42.0-75.0); Hemoglobin 14.3 g/dL (12.0-16.0); Mean Corpuscular Hemoglobin 30.5 pg (27.0-31.0); Mean Corpuscular Volume 92.4 fL (78.0-98.0); Mean Platelet Volume 7.6 fL (7.4-10.4); Platelet Count 309 thou/uL (130-400); Red Blood Cell (RBC) Count 4.68 mill/uL (4.20-5.40); White Blood Cell (WBC) Count 11.5 thou/uL (4.8-10.8)
[2022-04-29 05:13] LABS: Anion Gap 17 mmol/L (10-20); BUN (Urea Nitrogen) 14 mg/dL (9.8-20.1); Calc. Creatinine Clearance 54 mL/min (70-130); Calcium 8.8 mg/dL (7.8-10.44); Carbon Dioxide 23 mmol/L (23-31); Chloride 93 mmol/L (98-107); Estimated GFR 68; Glucose 139 mg/dL (83-110); Magnesium 1.6 mg/dL (1.6-2.6); Potassium 3.2 mmol/L (3.5-5.1); Sodium 130 mmol/L (136-145)
[2022-04-29] MEDS ORDERED: Electrolyte Replacement Protocol 1 EACH FS SCH (05:30)
[2022-04-29] MEDS ORDERED: Magnesium 2 GM/50 ML(in water) 2 GM in Premix Bag 1 BAG IVPB SCH (05:45)
[2022-04-29] MEDS ORDERED: Potassium Chloride 20 MEQ TAB PO SCH ×2 (05:45→17:00)
[2022-04-29] MEDS ORDERED: BIOTIN 800 MCG PO SCH (09:00)
[2022-04-29] MEDS: Acyclovir 200 mg Capsule PO SCH (09:06)
[2022-04-29] MEDS: Lisinopril 10 MG TAB PO SCH (09:06)
[2022-04-29] MEDS: Spironolactone 25 MG TAB PO SCH (09:06)
[2022-04-29] MEDS: Atorvastatin Calcium 10 MG TAB PO SCH (09:07)
[2022-04-29] MEDS: Aspirin 81 mg Enteric Coated Tablet PO SCH (09:07)
[2022-04-29] MEDS ORDERED: Furosemide 20 MG/2 ML VIAL SLOW IVP SCH ×2 (09:15→17:00)
[2022-04-29] MEDS ORDERED: Piperacillin/Tazobactam 3.375 GM in Sodium Chloride 0.9% 100 ML IVPB SCH (10:00)
[2022-04-29 11:06] LABS: Hemoglobin 14.1 g/dL (12.0-16.0)
[2022-04-29] MEDS: Acetaminophen 325 MG TAB PO PRN (15:37)
[2022-04-29] MEDS: Piperacillin/Tazobactam 3.375 GM in Sodium Chloride 0.9% 100 ML IVPB SCH ×2 (15:38→21:47)
[2022-04-29 17:34] LABS: Hemoglobin 14.6 g/dL (12.0-16.0)
[2022-04-30] MEDS: Acetaminophen 325 MG TAB PO PRN ×2 (00:54→11:16)
[2022-04-30] MEDS: Piperacillin/Tazobactam 3.375 GM in Sodium Chloride 0.9% 100 ML IVPB SCH ×2 (05:32→13:46)
[2022-04-30 06:15] LABS: #Eosinphils 0.1 thou/uL (0.0-0.7); #Lymphocytes 1.2 thou/uL (1.20-3.40); #Monocytes 0.8 thou/uL (0.11-0.59); #Neutrophils 6.1 thou/uL (1.40-6.50); %Basophils 0.4 % (0.0-1.0); %Eosinophils 1.5 % (0.0-10.0); %Lymphocytes 13.9 % (21.0-51.0); %Monocytes 10.1 % (0.0-10.0); %Neutrophils 74.1 % (42.0-75.0); Hemoglobin 13.2 g/dL (12.0-16.0); Mean Corpuscular HGB CONC 33.9 g/dL (32.0-36.0); Mean Corpuscular Hemoglobin 30.3 pg (27.0-31.0); Mean Corpuscular Volume 89.3 fL (78.0-98.0); Mean Platelet Volume 7.5 fL (7.4-10.4); Platelet Count 293 thou/uL (130-400); RBC Distribution Width 13.2 % (11.5-14.5); Red Blood Cell (RBC) Count 4.35 mill/uL (4.20-5.40); White Blood Cell (WBC) Count 8.3 thou/uL (4.8-10.8)
[2022-04-30 06:35] LABS: Anion Gap 17 mmol/L (10-20); BUN (Urea Nitrogen) 22 mg/dL (9.8-20.1); Calc. Creatinine Clearance 43 mL/min (70-130); Calcium 8.6 mg/dL (7.8-10.44); Carbon Dioxide 22 mmol/L (23-31); Chloride 91 mmol/L (98-107); Estimated GFR 52; Glucose 149 mg/dL (83-110); Magnesium 1.6 mg/dL (1.6-2.6); Potassium 3.4 mmol/L (3.5-5.1); Sodium 127 mmol/L (136-145)
[2022-04-30] MEDS: Ondansetron PF 4 MG/2 ML Vial IVP PRN ×2 (07:07→13:49)
[2022-04-30] MEDS ORDERED: Magnesium 2 GM/50 ML(in water) 2 GM in Premix Bag 1 BAG IVPB SCH (08:00)
[2022-04-30] MEDS ORDERED: Potassium Chloride 20 MEQ TAB PO SCH (08:00)
[2022-04-30] MEDS ORDERED: Lisinopril 20 MG TAB PO SCH (09:00)
[2022-04-30] MEDS ORDERED: Empagliflozin 10 MG TAB PO SCH (09:00)
[2022-04-30] MEDS: Atorvastatin Calcium 10 MG TAB PO SCH (09:14)
[2022-04-30] MEDS: Aspirin 81 mg Enteric Coated Tablet PO SCH (09:14)
[2022-04-30] MEDS: Spironolactone 25 MG TAB PO SCH (09:14)
[2022-04-30] MEDS: Acyclovir 200 mg Capsule PO SCH (09:14)
[2022-04-30] MEDS: hydrALAZINE 20 MG/ML VIAL SLOW IVP PRN (09:58)
[2022-04-30 12:11] VITALS: BP 140/76; TEMP 98
== END 2022-04-30 17:13 | disposition home or self-care (01) | DRG 280 ==
LOC: ERS 15:24 → ERHOLD 20:46 → 2NO 04-28 11:16 → T4-B 04-29 14:51
PROVIDERS: ADMIT Internal Medicine; ATTEND Internal Medicine
DX: I16.0 Hypertensive urgency (principal); I21.4 Non-ST elevation (NSTEMI) myocardial infarction; J18.9 Pneumonia, unspecified organism; G93.41 Metabolic encephalopathy; E87.1 Hypo-osmolality and hyponatremia; I50.32 Chronic diastolic (congestive) heart failure; I51.81 Takotsubo syndrome; Z20.822 Contact with and (suspected) exposure to COVID-19; E78.5 Hyperlipidemia, unspecified; F32.A Depression, unspecified; E83.42 Hypomagnesemia; E87.6 Hypokalemia; I11.0 Hypertensive heart disease with heart failure; Z96.611 Presence of right artificial shoulder joint; Z90.49 Acquired absence of other specified parts of digestive tract; Z98.1 Arthrodesis status; Z88.5 Allergy status to narcotic agent; Z88.8 Allergy status to other drugs, medicaments and biological substances; Z79.82 Long term (current) use of aspirin; Z79.899 Other long term (current) drug therapy
CPT/HCPCS: 36415; 36416; 70450; 71045; 71275; 80048; 80053; 80306; 81003; 81015; 82140; 82274; 82553; 83735; 83880; 84145; 84484; 85025; 93005; 93306; 96365; 96375; J0360; J0456; J0696; J1650; J1940; J2405; J2543; J3475; J3490; Q9967; U0002